=== PATIENT | female | born 1955 | race Caucasian/White ===

== ENCOUNTER 2018-05-16 12:32 | Emergency (ER) | payer OTHER ==
--- OUTSIDE RECORDS SUMMARY | 2018-05-16 12:34 | XMS REPORT | Summary of Care ---
:1955 Author Organization [facility] [place] Address Unavailable , Encounter HQ Sherrybriana_irisgifty(CYNTHIA) [id number] Date(s): 04/24/18 - 04/24/18 [facility] [place] Discharge Disposition: Home or Self Care Attending Physician: Bree Marina (Duplicate) Referring Physician: Bree Marina (Duplicate) Vital Signs No data available for this section Problem List No data available for this section Allergies, Adverse Reactions, Alerts No data available for this section Medications No data available for this section Results No data available for this section Immunizations No data available for this section Procedures No data available for this section Social History No data available for this section Assessment and Plan No data available for this section
--- OUTSIDE RECORDS SUMMARY | 2018-05-16 12:34 | XMS REPORT | Continuity of Care Document ---
:1955 Author Organization Interface Problems Problem Status Onset Classification Date Comments Source Date Reported R90.89 - OTH Active [facility] ABNORMAL 8 Bone & FINDINGS ON Joint DIAGN Medications Medication Details Route Status Patient Ordering Order Source Instructions Provider Date Allergies, Adverse Reactions, Alerts Substance Category Reaction Severity Reaction Status Date Comments Source type Reported Immunizations Immunization Date Given Site Status Last Updated Comments Source Results Order Results Value Reference Date Interpretation Comments Source Name Range Brain wo Brain wo MRI of the BRAIN Without IV Contrast 04/24 - [facility] contrast contrast /2017 - [facility] Read by: Lizbet Field MD Dictated Date/time: 04/24/18 18:26 TECHNIQUE: Multiplanar images were performed on a high field unit without IV contrast Electronically Signed by: Lizbet Field MD 04/24/18 18:33 FINAL REPORT HISTORY: Headaches Findings: There are multiple foci of abnormal signal intensity in the deep periventricular white matter as well of thin the subcortical lloyd-white junction in the posterior frontal lobes bilaterally. The findings most likely represent small vessel ischemic change as well as lacunar infarcts. No evidence of hemorrhage edema or mass effect. There is prominence of the sulci in the frontal and parietal lobes bilaterally compatible with cerebral cortical atrophy. No extra-axial fluid collections are identified. There is no evidence of mass, edema or hemorrhage. The craniocervical junction is normal without Chiari malformation. Corpus callosum is intact. No suprasellar masses are identified. Flow void is appreciated within the cavernous carotid and basilar arteries indicating patency. IMPRESSION: Multiple foci of deep periventricular and subcortical white matter abnormal signal highly compatible with small vessel ischemic change and lacunar infarcts. No evidence of hemorrhage edema or mass effect. Bilateral frontal and parietal cortical atrophy. Dictation Code: 100 Vital Signs Vital Sign Value Date Comments Source Encounters Location Location Encounter Encounter Reason Attending ADM DC Status Source Details Type Number For Provider Date Date Visit [facility] Outpt Diag [id number] Bree 04/24 04/25 [facility] [place] Procedures Procedure Code Date Perfomer Comments Source
--- OUTSIDE RECORDS SUMMARY | 2018-05-16 12:34 | XMS REPORT | Summary of Care ---
:1955 Author Name ANISHA HOLLY M.D. Address Unavailable Unavailable , Care Team Providers Name Role Phone ANISHA HOLLY M.D. Unavailable Unavailable Unavailable Unavailable Unavailable Functional Status Name Dates Details Functional status health issues are not documented Status: Name Dates Details Cognitive status health issues are not documented Status: Problems Name Dates Details Common migraine without aura (346.10, G43.009) Status: Active Migraine (346.90, G43.909) Status: Active Intractable migraine without aura and without status migrainosus (346.11, G43.019) Status: Active Intermittent post-traumatic headache (339.20, G44.309) Status: Active Abnormal brain MRI (793.0, R90.89) Status: Active Depression (311, F32.9) Status: Active Medications Name Dates Details Ventolin HFA AERS Refills: 0 Active Ibuprofen CAPS Refills: 0 Active Diclofenac Sodium 50 MG Oral Tablet Delayed Release TAKE ONE TABLET PO DAILY PRN HEADACHE Quantity: 30 Refills: 5 ELAYNE Sepulveda, ANISHA Start : 25-Dec-2017 Active Amitriptyline HCl - 25 MG Oral Tablet TAKE 2 TABLETS AT BEDTIME. Quantity: 60 Refills: 5 ELAYNE Sepulveda, ANISHA Start : 02-Apr-2018 Active Allergies and Adverse Reactions Name Dates Details Penicillins (Allergy) Status: Active Past Medical History Name Dates Details History of asthma (V12.69, Z87.09) Status: Resolved History of chronic obstructive lung disease (V12.69, Z87.09) Status: Resolved Procedures Procedure Dates Details MRI Brain wo contrast 64094 Date: 02-Apr-2018 History of Hysterectomy Completed History of Neck surgery Completed Immunization Name Dates Details Immunizations not documented Family History Name Dates Details Family history of lung disease (V19.8, Z83.6) Status: Active Name Dates Details Family history of myocardial infarction (V17.3, Z82.49) Status: Active Social History Name Dates Details Unknown if ever smoked Vital Signs Date Test Result Details [id number] BP Systolic 122 mm[Hg] Status: Comments: Location: LUE; Position: Sitting BP Diastolic 85 mm[Hg] Status: Comments: Location: E; Position: Sitting Height 58 in Status: Weight 157.375 lb Status: Body Mass Index Calculated 32.89 kg/m2 Status: Body Surface Area Calculated 1.64 m2 Status: Temperature 97.6 f Status: Comments: Method: Oral Heart Rate 73 /min Status: Results Date Description Value Details Results not documented Plan of Care Name Dates Details Planned Observations Planned Goals not documented Planned Encounters Appointment; ANISHA HOLLY M.D. On: 02-Jul-2018 11:30 Interventions Provided Medication ChangesAmitriptyline HCl - 25 MG Oral Tablet - StartLabs/Procedures/ ImagingMRI Brain wo contrast [id number]; To Be Done: 02 Apr 2018Plan- trial of Elavil 50mg qhs for migraine prophylaxis (titration schedule provided to the patient) - patient with history of abnormal MRI; will repeat imagingDiscussion/ SummaryMrs. Taylor is a 62 y/o woman with a PMH of HTN, DM and Hypothyroidism who presents to clinic for a follow-up appointment for management of her chronic headaches. Given the patient's history of headaches I think that her headaches are likely migrainous in origin which has been exacerbated by her recent head trauma. Due to the frequency and intensity of her headaches I believe that the patient would benefit from migraine prophylaxis. The patient's headaches are likely exacerbated by her ongoing stress and depression related to the recent passing of her son; restarting and increasing the dose of Elavil will likely help with this Instructions Name Dates Details Instructions not documented Encounters Appointment; ANISHA HOLLY M.D. On: 25-Dec-2017 10:30 Encounter Diagnosis: Problem not documented Appointment; ANISHA HOLLY M.D. On: 26-Mar-2018 11:30 Encounter Diagnosis: Problem not documented Appointment; ANISHA HOLLY M.D. On: 02-Apr-2018 11:30 Encounter Diagnosis: Problem not documented
[2018-05-16] MEDS ORDERED: HYDROCODONE/APAP 10/325 TAB ONE (13:25)
--- NOTE | 2018-05-16 13:47 | RAD REPORT ---
EXAM DESCRIPTION: CT - CTHCSPWOC - 05/16/2018 1:37 pm CLINICAL HISTORY: Fall, head and neck injury COMPARISON: None. TECHNIQUE: Axial 5 mm thick images of the head were obtained. Axial 2 mm thick images of the cervic al spine were obtained with sagittal and coronal reconstruction images generated and reviewed. All CT scans are performed using dose optimization technique as appropriate and may include automated exposure control or mA/KV adjustment according to patient size. FINDINGS: No intracranial hemorrhage, mass, edema or acute intracranial finding. No suspicion for ac [place] infarction. No extra-axial fluid collections. Mastoid air cells and paranasal sinuses are clear. No globe or orbit abnormality seen. No significant atrophy or chronic ischemic change. No skullbase f racture. Cervical body height and alignment are normal. C3-C7 fusion changes are present with hardware in plac e. [place] artifact from the metal hardware somewhat limits the examination. No alignment or subluxatio n abnormality seen. No fracture or acute bony abnormality. Central canal detail is inherently limited . Midline and right-sided central spinal stenosis at C3-4 from right-sided central canal hypertrophy. Canal is approximately 9 mm. Significant bony foraminal encroachment on the right at C5-6 from uncov ertebral joint hypertrophy. No paraspinal mass or hematoma. IMPRESSION: No hemorrhage, edema or acute CT Head finding. No fracture or acute cervical spine finding. There is C3-C7 fusion change present. Mild central spinal stenosis on the right at C3-4 and significant bony foraminal encroachment on the right at C5-6 are present and predate the injury. Negative CT cervical spine examination for acute or significant finding.
--- NOTE | 2018-05-16 13:51 | RAD REPORT ---
EXAM DESCRIPTION: CT - Thorax Wo Con - 05/16/2018 1:37 pm CLINICAL HISTORY: Fall, blunt force trauma to the chest COMPARISON: Chest exam March 03, 2018 TECHNIQUE: Axial 5 mm thick images of the chest were obtained without IV contrast. All CT scans are performed using dose optimization technique as appropriate and may include automated exposure control or mA/KV adjustment according to patient size. FINDINGS: No mass or infiltrate in the lung parenchyma. No pleural thickening or pleural effusion. N o pneumothorax is present. There is minimal scarring at the anterior based on the left. No abnormal mediastinal or hilar masses or lymphadenopathy seen. No gross aortic or pulmonary artery finding suspected. Assessment is limited in the absence of IV contrast. No chest wall mass or abnormal axillary lymphadenopathy. No sternum fracture. Clavicles are intact. N o displaced rib fractures seen or nondisplaced rib fracture suspected. IMPRESSION: No sternum or rib fracture seen. No mediastinal hematoma or mass. No pulmonary contusion, pneumothorax or acute pleural/parenchymal pr ocess.
--- NOTE | 2018-05-16 15:26 | EDPHYS ---
Physician Documentation [facility] Name: Jasmine Vazquez Age: 62 yrs Sex: Female : 1955 Arrival Date: 05/16/2018 Time: 12:37 Bed 23 Private MD: None, None ED Physician Stalin Keys HPI: 05/16 14:40 This 62 yrs old Female presents to ER via Ambulatory with complaints of Fall kdr Injury. 14:40 Details of fall: The patient fell from a height, Back of pick-up when tailgate fell kdr down. Onset: The symptoms/episode began/occurred acutely, suddenly, just prior to arrival. Associated injuries: The patient sustained injury to the chest, specifically the mid-sternal area, right breast and left breast, abrasion, contusion, pain with breathing, pain with movement, tenderness. Severity of symptoms: At their worst the symptoms were mild, in the emergency department the symptoms are unchanged. The patient has not experienced similar symptoms in the past. The patient has been recently seen by a physician: the patient's primary care provider. The patient fell out of the truck that was at rest hitting her head on a tree near the ground. There may have been a very brief LOC but the patient denies any LOC. Historical: - Allergies: 13:06 PENICILLINS; iw - Home Meds: 13:06 Ventolin Rotahaler/Rotacaps Inhl [Active]; Advair Diskus Inhl [Active]; diclofenac oral iw oral [Active]; amitriptyline Oral [Active]; - PMHx: 13:06 COPD; iw - PSHx: 13:06 neck; iw - Immunization history: Last tetanus immunization: unknown. - Social history:: Smoking status: Patient uses tobacco products. - Ebola Screening: : No symptoms or risks identified at this time. ROS: 14:40 Constitutional: Negative for fever, chills, and weight loss, Eyes: Negative for injury, kdr pain, redness, and discharge, Neck: Negative for injury, pain, and swelling, Cardiovascular: Negative for chest pain, palpitations, and edema, Respiratory: Negative for shortness of breath, cough, wheezing, and pleuritic chest pain, Abdomen/GI: Negative for abdominal pain, nausea, vomiting, diarrhea, and constipation, Back: Negative for injury and pain, : Negative for injury, bleeding, discharge, and swelling, MS/Extremity: Negative for injury and deformity, Neuro: Negative for headache, weakness, numbness, tingling, and seizure activity. Psych: Negative for depression, anxiety, suicide ideation, homicidal ideation, and hallucinations, Allergy/Immunology: Negative for hives, rash, and allergies, Endocrine: Negative for neck swelling, polydipsia, polyuria, polyphagia, and marked weight changes, Hematologic/Lymphatic: Negative for swollen nodes, abnormal bleeding, and unusual bruising. 14:40 Skin: Positive for abrasion(s), swelling. Exam: 14:40 Constitutional: This is a well developed, well nourished patient who is awake, alert, kdr and in no acute distress. Head/Face: Normocephalic, atraumatic. Eyes: Pupils equal round and reactive to light, extra-ocular motions intact. Lids and lashes normal. Conjunctiva and sclera are non-icteric and not injected. Cornea within normal limits. Periorbital areas with no swelling, redness, or edema. Neck: Trachea midline, no thyromegaly or masses palpated, and no cervical lymphadenopathy. Supple, full range of motion without nuchal rigidity, or vertebral point tenderness. No Meningismus. Cardiovascular: Regular rate and rhythm with a normal S1 and S2. No gallops, murmurs, or rubs. Normal PMI, no JVD. No pulse deficits. Respiratory: Lungs have equal breath sounds bilaterally, clear to auscultation and percussion. No rales, rhonchi or wheezes noted. No increased work of breathing, no retractions or nasal flaring. Abdomen/GI: Soft, non-tender, with normal bowel sounds. No distension or tympany. No guarding or rebound. No evidence of tenderness throughout. Back: No spinal tenderness. No costovertebral tenderness. Full range of motion. Skin: Warm, dry with normal turgor. Normal color with no rashes, no lesions, and no evidence of cellulitis. 14:40 Chest/axilla: Inspection: abrasion, that is mild, of the left breast Palpation: tenderness, that is mild, that partially reproduces the patient's complaints, that totally reproduces the patient's complaints. Vital Signs: 13:06 BP 124 / 88; Pulse 81; Resp 16; Temp 99.2; Pulse Ox 97% on R/A; Weight 68.04 kg; Height iw 5 ft. (152.40 cm); Pain 10/10; 14:00 BP 131 / 86; Pulse 75; Resp 17; Pulse Ox 98% on R/A; kr2 15:00 BP 114 / 71; Pulse 72; Resp 17; Pulse Ox 97% on R/A; kr2 13:06 Body Mass Index 29.29 (68.04 kg, 152.40 cm) iw Mauricio Coma Score: 13:06 Eye Response: spontaneous(4). Verbal Response: oriented(5). Motor Response: obeys iw commands(6). Total: 15. 13:07 Eye Response: spontaneous(4). Verbal Response: oriented(5). Motor Response: obeys kr2 commands(6). Total: 15. Trauma Score (Adult): 13:06 Eye Response: spontaneous(1); Verbal Response: oriented(1); Motor Response: obeys iw commands(2); Systolic BP: > 89 mm Hg(4); Respiratory Rate: 10 to 29 per min(4); Mauricio Score: 15; Trauma Score: 12 13:07 Eye Response: spontaneous(1); Verbal Response: oriented(1); Motor Response: obeys kr2 commands(2); Systolic BP: > 89 mm Hg(4); Respiratory Rate: 10 to 29 per min(4); [place] Score: 15; Trauma Score: 12 MDM: 14:40 Data reviewed: vital signs, nurses notes, radiologic studies. Counseling: I had a kdr detailed discussion with the patient and/or guardian regarding: the historical points, exam findings, and any diagnostic results supporting the discharge/admit diagnosis. 15:25 Patient medically screened. kdr 05/16 13:18 Order name: CT Head C Spine; Complete Time: 14:38 kdr 05/16 13:18 Order name: CT Chest Wo Con; Complete Time: 14:38 kdr Administered Medications: 13:22 Drug: [place] 10 mg-325 mg 1 tabs Route: PO; kr2 15:01 Follow up: Response: No adverse reaction; Pain is decreased kr2 Disposition: 05/16/18 15:25 Discharged to Home. Impression: Chest pain, unspecified - Chest wall pain. - Condition is Stable. - Discharge Instructions: Chest Wall Pain, [id number]. - Prescriptions for Tylenol- Codeine #3 300-30 mg Oral Tablet - take 2 tablets by ORAL route every 6 hours As needed; 15 tablet. - Medication Reconciliation Form, Thank You Letter, Prescription Opioid Use, Family Work Release form. - Follow up: Private Physician; When: 2 - 3 days; Reason: If symptoms return, Further diagnostic work-up, Recheck today's complaints, Continuance of care, Re-evaluation by your physician. - Problem is new. - Symptoms have improved. Signatures: Dispatcher [employer] EDMS Stalin Keys MD MD kdr Khloe Good RN RN iw Soniya Corado RN RN kr2 Corrections: (The following items were deleted from the chart) 15:40 15:25 05/16/2018 15:25 Discharged to Home. Impression: Chest pain, unspecified - Chest kr2 wall pain. Condition is Stable. Forms are Medication Reconciliation Form, Thank You Letter, Antibiotic Education, Prescription Opioid Use. Follow up: Private Physician; When: 2 - 3 days; Reason: If symptoms return, Further diagnostic work-up, Recheck today's complaints, Continuance of care, Re-evaluation by your physician. Problem is new. Symptoms have improved. kdr
--- NOTE | 2018-05-16 15:26 | ER ---
Nurse's Notes [facility] Name: Jasmine Vazquez Age: 62 yrs Sex: Female : 1955 Arrival Date: 05/16/2018 Time: 12:37 Bed 23 Private MD: None, None Diagnosis: Chest pain, unspecified-Chest wall pain Presentation: 05/16 13:02 Presenting complaint: Patient states: was trying to get out of bed of truck, felt iw tailgate falling, pt fell to ground, hit chest along brick lining the driveway, pt now has pain across chest and pain with respiration, 10/10. Care prior to arrival: None. Mechanism of Injury: Fall approximately 3 feet. Trauma event details: Injury occurred in the [facility]. 13:02 Acuity: RAKAN 3 iw 13:02 Method Of Arrival: Ambulatory iw 13:07 Transition of care: patient was not received from another setting of care. Onset of iw symptoms was May 16, 2018. Risk Assessment: Do you want to hurt yourself or someone else? Patient reports no desire to harm self or others. Initial Sepsis Screen: Does the patient meet any 2 criteria? No. Patient's initial sepsis screen is negative. Does the patient have a suspected source of infection? No. Patient's initial sepsis screen is negative. Trauma Activation: Not Applicable Physician: ED Physician; Name: ; Notified At: ; Arrived At: Physician: General Surgeon; Name: ; Notified At: ; Arrived At: Physician: Radiology; Name: ; Notified At: ; Arrived At: Physician: Respiratory; Name: ; Notified At: ; Arrived At: Physician: Lab; Name: ; Notified At: ; Arrived At: Historical: - Allergies: 13:06 PENICILLINS; iw - Home Meds: 13:06 Ventolin Rotahaler/Rotacaps Inhl [Active]; Advair Diskus Inhl [Active]; diclofenac oral iw oral [Active]; amitriptyline Oral [Active]; - PMHx: 13:06 COPD; iw - PSHx: 13:06 neck; iw - Immunization history: Last tetanus immunization: unknown. - Social history:: Smoking status: Patient uses tobacco products. - Ebola Screening: : No symptoms or risks identified at this time. Screenin:09 Abuse screen: Denies threats or abuse. Denies injuries from another. Nutritional kr2 screening: No deficits noted. Tuberculosis screening: No symptoms or risk factors identified. Fall Risk None identified. Primary Survey: 13:09 A: Airway: patent. Breathing/Chest: Respiratory pattern: regular, Respiratory effort: kr2 spontaneous, unlabored, Breath sounds: clear, bilaterally. Chest inspection: symmetrical rise and fall of the chest. Circulation: Heart tones present. Skin color: pink, Skin temperature: warm, dry. Disability Alert. 13:30 Reassessment Breathing/Chest Respiratory pattern Regular Respiratory effort Spontaneous kr2 Unlabored Breath sounds Clear Chest inspection Symmetrical. Assessment: 13:03 General: Appears in no apparent distress. uncomfortable, well groomed, well developed, kr2 well nourished, Behavior is calm, cooperative, appropriate for age. Pain: Complains of pain in anterior aspect of right upper chest, anterior aspect of left upper chest and mid-sternal area Pain does not radiate. Pain currently is 10 out of 10 on a pain scale. Quality of pain is described as sharp, tender, Is continuous, Alleviated by rest, Aggravated by deep breathing. Neuro: Level of Consciousness is awake, alert, obeys commands, Oriented to person, place, time, situation, Appropriate for age Wrapper Stemmer Operator are equal bilaterally. Cardiovascular: Capillary refill < 3 seconds in bilateral fingers Patient's skin is warm and dry. Respiratory: Airway is patent Respiratory effort is even, unlabored, Respiratory pattern is regular, symmetrical. GI: Abdomen is flat, non-distended, Patient currently denies nausea, vomiting. EENT: Oral mucosa is moist. Derm: Skin is intact, is healthy with good turgor, Skin is pink, warm \T\ dry. Musculoskeletal: Circulation, motion, and sensation intact. 14:00 Reassessment: Patient appears in no apparent distress at this time. Patient and/or kr2 family updated on plan of care and expected duration. Pain level reassessed. Patient is alert, oriented x 3, equal unlabored respirations, skin warm/dry/pink. Patient states symptoms have improved. 14:59 Reassessment: Patient appears in no apparent distress at this time. Patient and/or kr2 family updated on plan of care and expected duration. Pain level reassessed. Patient is alert, oriented x 3, equal unlabored respirations, skin warm/dry/pink. Patient states feeling better. Vital Signs: 13:06 BP 124 / 88; Pulse 81; Resp 16; Temp 99.2; Pulse Ox 97% on R/A; Weight 68.04 kg; Height iw 5 ft. (152.40 cm); Pain 10/10; 14:00 BP 131 / 86; Pulse 75; Resp 17; Pulse Ox 98% on R/A; kr2 15:00 BP 114 / 71; Pulse 72; Resp 17; Pulse Ox 97% on R/A; kr2 13:06 Body Mass Index 29.29 (68.04 kg, 152.40 cm) iw Mauricio Coma Score: 13:06 Eye Response: spontaneous(4). Verbal Response: oriented(5). Motor Response: obeys iw commands(6). Total: 15. 13:07 Eye Response: spontaneous(4). Verbal Response: oriented(5). Motor Response: obeys kr2 commands(6). Total: 15. Trauma Score (Adult): 13:06 Eye Response: spontaneous(1); Verbal Response: oriented(1); Motor Response: obeys iw commands(2); Systolic BP: > 89 mm Hg(4); Respiratory Rate: 10 to 29 per min(4); Mauricio Score: 15; Trauma Score: 12 13:07 Eye Response: spontaneous(1); Verbal Response: oriented(1); Motor Response: obeys kr2 commands(2); Systolic BP: > 89 mm Hg(4); Respiratory Rate: 10 to 29 per min(4); Mauricio Score: 15; Trauma Score: 12 ED Course: 12:37 Patient arrived in ED. mr 12:37 None, None is Private Physician. mr 12:40 Stalin Keys MD is Attending Physician. kdr 13:02 Soniya Corado, MAGI is Primary Nurse. kr2 13:04 Triage completed. iw 13:07 Arm band placed on. iw 13:08 Patient has correct armband on for positive identification. Bed in low position. Call kr2 light in reach. Side rails up X 1. Adult w/ patient. Pulse ox on. NIBP on. Door closed. Warm blanket given. Head of bed elevated. 13:10 Patient maintains SpO2 saturation greater than 95% on room air. kr2 13:11 Thermoregulation: warm blanket given to patient. kr2 13:27 CT completed. Patient tolerated procedure well. Patient moved to CT via wheelchair. vr Patient moved back from CT. 13:34 CT Head C Spine In Process Unspecified. EDMS 13:37 CT Chest Wo Con In Process Unspecified. EDMS 15:35 No provider procedures requiring assistance completed. Patient did not have IV access kr2 during this emergency room visit. Administered Medications: 13:22 Drug: [place] 10 mg-325 mg 1 tabs Route: PO; kr2 15:01 Follow up: Response: No adverse reaction; Pain is decreased kr2 Intake: 15:35 PO: 30ml (Water); Total: 30ml. kr2 Output: 15:35 Urine: 100ml (Voided); Total: 100ml. kr2 Outcome: 15:25 Discharge ordered by . kdr 15:35 Discharged to home ambulatory, with family. kr2 15:35 Condition: good 15:35 Discharge instructions given to patient, family, Instructed on discharge instructions, follow up and referral plans. medication usage, Demonstrated understanding of instructions, follow-up care, medications, Prescriptions given X 2. 15:40 Patient left the ED. kr2 Signatures: Dispatcher [employer] EDMS Stalin Keys MD MD kdr Rivera, Maria mr Khloe Good, Rosa M Manuel RN, Karey, RN RN kr2 Corrections: (The following items were deleted from the chart) 13:08 13:03 Pain: Complains of pain in anterior aspect of right upper chest, anterior aspect kr2 of left upper chest and mid-sternal area Pain does not radiate. Pain currently is 5 out of 10 on a pain scale. Quality of pain is described as sharp, tender, Is continuous, Alleviated by rest, Aggravated by deep breathing kr2
== END 2018-05-16 15:40 | disposition home or self-care (01) ==
LOC: ER 12:32
DX: R07.89 Other chest pain (principal); J44.9 Chronic obstructive pulmonary disease, unspecified; W17.89XA Other fall from one level to another, initial encounter; Y93.89 Activity, other specified; Y92.89 Other specified places as the place of occurrence of the external cause; Z72.0 Tobacco use; Z88.0 Allergy status to penicillin
CPT/HCPCS: 70450; 71250; 72125; 99285

== ENCOUNTER 2018-09-17 08:42 | Emergency (ER) | payer OTHER ==
--- OUTSIDE RECORDS SUMMARY | 2018-09-17 08:46 | XMS REPORT | Continuity of Care Document ---
[...] Type Number For Provider Date Date Visit [facility] Outpt Diag [id number] Bree 04/24 04/25 [facility] [place] Procedures Procedure Code Date Perfomer Comments Source
--- OUTSIDE RECORDS SUMMARY | 2018-09-17 08:46 | XMS REPORT | Summary of Care ---
:1955 Author Name Cynthia Patrick Address [facility] Unavailable , Care Team Providers Name Role Phone ANISHA HOLLY M.D. Unavailable Unavailable Darnell Cynthia Unavailable Unavailable Unavailable Unavailable Unavailable Functional Status Name Dates Details Functional status health issues are not documented Status: Name Dates Details Cognitive status health issues are not documented Status: Problems Name Dates Details Common migraine without aura (346.10, G43.009) Status: Active Migraine (346.90, G43.909) Status: Active Depression (311, F32.9) Status: Active Intractable migraine without aura and without status migrainosus (346.11, G43.019) Status: Active Intermittent post-traumatic headache (339.20, G44.309) Status: Active Abnormal brain MRI (793.0, R90.89) Status: Active Medications Name Dates Details Ventolin HFA AERS Refills: 0 Active Ibuprofen CAPS Refills: 0 Active Diclofenac Sodium 50 MG Oral Tablet Delayed Release TAKE ONE TABLET PO DAILY PRN HEADACHE Quantity: 30 Refills: 5 ANISHA HOLLY M.D. Start : 25-Dec-2017 Active Amitriptyline HCl - 25 MG Oral Tablet TAKE 2 TABLETS AT BEDTIME. Quantity: 60 Refills: 5 ANISHA HOLLY M.D. Start : 02-Apr-2018 Active Allergies and Adverse Reactions Name Dates Details Penicillins (Allergy) Status: Active Past Medical History Name Dates Details History of asthma (V12.69, Z87.09) Status: Resolved History of chronic obstructive lung disease (V12.69, Z87.09) Status: Resolved Procedures Procedure Dates Details History of Hysterectomy Completed History of Neck surgery Completed Immunization Name Dates Details Immunizations not documented Family History Name Dates Details Family history of lung disease (V19.8, Z83.6) Status: Active Name Dates Details Family history of myocardial infarction (V17.3, Z82.49) Status: Active Social History Name Dates Details Unknown if ever smoked Vital Signs Date Test Result Details No Known Vitals to report Results Date Description Value Details Results not documented Plan of Care Name Dates Details Planned Observations Planned Goals not documented Planned Encounters Appointment; ANISHA HOLLY M.D. On: 30-Dec-2018 11:30 Instructions Name Dates Details Instructions not documented Encounters Appointment; ANISHA HOLLY M.D. On: 25-Dec-2017 10:30 Encounter Diagnosis: Problem not documented Appointment; ANISHA HOLLY M.D. On: 26-Mar-2018 11:30 Encounter Diagnosis: Problem not documented Appointment; ANISHA HOLLY M.D. On: 02-Apr-2018 11:30 Encounter Diagnosis: Problem not documented Appointment; ANISHA HOLLY M.D. On: 02-Jul-2018 11:30 Encounter Diagnosis: Problem not documented
[2018-09-17] MEDS ORDERED: IPRATROPIUM BROM 0.5MG/2.5ML ONE (09:19)
[2018-09-17] MEDS ORDERED: ALBUTEROL 2.5 MG/3 ML NEB SOL ONE (09:19)
--- NOTE | 2018-09-17 10:28 | RAD REPORT ---
EXAM DESCRIPTION: Lynn Agosto (2 Views)09/17/2018 9:43 am CLINICAL HISTORY: Cough COMPARISON: February 2018 FINDINGS: The lungs appear clear of acute infiltrate. The heart is normal size IMPRESSION: No acute abnormalities displayed
--- NOTE | 2018-09-17 10:48 | ER ---
Nurse's Notes [facility] Name: Jasmine Vazquez Age: 62 yrs Sex: Female : 1955 Arrival Date: 09/17/2018 Time: 08:46 Bed 11 Private MD: None, None Diagnosis: Bronchitis, not specified as acute or chronic Presentation: 09/17 08:53 Presenting complaint: Patient states: i started feeling bad the night before last my tw2 throat was scratchy and yesterday it was real bad, i also had a 99 fever yesterday, everything hurts, congestion. Transition of care: patient was not received from another setting of care. Onset of symptoms was September 17, 2018. Risk Assessment: Do you want to hurt yourself or someone else? Patient reports no desire to harm self or others. Initial Sepsis Screen: Does the patient meet any 2 criteria? No. Patient's initial sepsis screen is negative. Does the patient have a suspected source of infection? No. Patient's initial sepsis screen is negative. Care prior to arrival: None. 08:53 Method Of Arrival: Ambulatory tw2 08:53 Acuity: RAKAN 4 tw2 Historical: - Allergies: 08:55 PENICILLINS; tw2 - Home Meds: 08:55 Advair Diskus Inhl [Active]; Amitriptyline Oral [Active]; diclofenac Oral [Active]; tw2 Ventolin Rotahaler/Rotacaps Inhl [Active]; - PMHx: 08:55 COPD; tw2 - PSHx: 08:55 neck; tw2 - Immunization history:: Adult Immunizations up to date. - Social history:: Smoking status: . - Ebola Screening: : Patient denies travel to an Ebola-affected area in the 21 days before illness onset. Screenin:02 Abuse screen: Denies threats or abuse. Nutritional screening: No deficits noted. tw2 Tuberculosis screening: No symptoms or risk factors identified. Fall Risk None identified. Assessment: 09:01 General: Appears in no apparent distress. Behavior is calm, cooperative, appropriate tw2 for age. Pain: Complains of pain in throat. Neuro: Level of Consciousness is awake, alert, obeys commands, Oriented to person, place, time, situation. Cardiovascular: Patient's skin is warm and dry. Respiratory: Reports cough that is non-productive, Airway is patent Respiratory effort is even, unlabored, Respiratory pattern is regular, symmetrical. GI: No signs and/or symptoms were reported involving the gastrointestinal system. : No signs and/or symptoms were reported regarding the genitourinary system. EENT: Reports nasal congestion nasal discharge pain in right ear and left ear when swallowing. Derm: No signs and/or symptoms reported regarding the dermatologic system. Musculoskeletal: Range of motion: intact in all extremities. 10:03 Reassessment: Patient appears in no apparent distress at this time. No changes from tw2 previously documented assessment. Patient and/or family updated on plan of care and expected duration. Pain level reassessed. Patient is alert, oriented x 3, equal unlabored respirations, skin warm/dry/pink. 10:53 Reassessment: Patient appears in no apparent distress at this time. No changes from tw2 previously documented assessment. Patient and/or family updated on plan of care and expected duration. Pain level reassessed. Patient is alert, oriented x 3, equal unlabored respirations, skin warm/dry/pink. Vital Signs: 08:54 BP 135 / 84; Pulse 96; Resp 17; Temp 98.2(O); Pulse Ox 100% on R/A; Pain 7/10; tw2 10:03 BP 122 / 74; Pulse 86; Resp 17; Pulse Ox 98% on R/A; tw2 ED Course: 08:46 Patient arrived in ED. sb2 08:46 None, None is Private Physician. sb2 08:54 Triage completed. tw2 08:54 [facility] kb 08:54 Miguel Pierce MD is Attending Physician. kb 08:54 Arm band placed on. tw2 08:57 Strep Sent. tw2 08:57 Flu Sent. tw2 09:01 Palak Caruso, MAGI is Primary Nurse. tw2 09:01 Bed in low position. Call light in reach. tw2 09:34 Patient moved to radiology via wheelchair. la2 09:39 X-ray completed. Patient tolerated procedure well. Patient moved back from radiology. jb2 10:53 No provider procedures requiring assistance completed. Patient did not have IV access tw2 during this emergency room visit. Administered Medications: 09:13 Drug: DuoNeb (3:1) (2.5 mg - 0.5 mg) 3 ml Route: Nebulizer; tw2 10:03 Follow up: Response: No adverse reaction tw2 Outcome: 10:47 Discharge ordered by MD. poole 10:53 Discharged to home ambulatory. 2 10:53 Condition: stable 10:53 Discharge instructions given to patient, Instructed on discharge instructions, follow up and referral plans. medication usage, Demonstrated understanding of instructions, follow-up care, medications, Prescriptions given X 1. 10:53 Patient left the ED. tw2 Signatures: Bree Mackenzie FNP-C FNP-Ckb Buechter, Jesse jb2 Palak Caruso RN RN tw2 Nanda Colvin2 Renae Dial sb2
--- NOTE | 2018-09-17 10:48 | EDPHYS ---
Physician Documentation [facility] Name: Jasmine Vazquez Age: 62 yrs Sex: Female : 1955 Arrival Date: 09/17/2018 Time: 08:46 Bed 11 Private MD: None, None ED Physician Miguel Pierce HPI: 09/17 09:14 This 62 yrs old Female presents to ER via Ambulatory with complaints of Flu kb Symptoms. 09:14 The patient or guardian reports cough, that is intermittent, described as moderate, kb with no sputum, flu symptoms, myalgias. Onset: The symptoms/episode began/occurred 3 day(s) ago. Severity of symptoms: At their worst the symptoms were moderate, in the emergency department the symptoms are unchanged. Modifying factors: The symptoms are alleviated by nothing, the symptoms are aggravated by nothing. Associated signs and symptoms: Pertinent positives: earache, sore throat, Pertinent negatives: chest pain, diarrhea, fever, nausea, rhinorrhea, vomiting. The patient has not experienced similar symptoms in the past. The patient has not recently seen a physician. Pt reports cough, congestion, sore throat, ear pain and body aches. Diagnosed with strep and bronchitis 3 weeks ago, completed antibiotics and steroids. . Historical: - Allergies: 08:55 PENICILLINS; tw2 - Home Meds: 08:55 Advair Diskus Inhl [Active]; Amitriptyline Oral [Active]; diclofenac Oral [Active]; tw2 Ventolin Rotahaler/Rotacaps Inhl [Active]; - PMHx: 08:55 COPD; tw2 - PSHx: 08:55 neck; tw2 - Immunization history:: Adult Immunizations up to date. - Social history:: Smoking status: . - Ebola Screening: : Patient denies travel to an Ebola-affected area in the 21 days before illness onset. ROS: 09:11 Neck: Negative for injury, pain, and swelling, Cardiovascular: Negative for chest pain, kb palpitations, and edema, Abdomen/GI: Negative for abdominal pain, nausea, vomiting, diarrhea, and constipation, Back: Negative for injury and pain, : Negative for injury, bleeding, discharge, and swelling, MS/Extremity: Negative for injury and deformity, Skin: Negative for injury, rash, and discoloration, Neuro: Negative for headache, weakness, numbness, tingling, and seizure. 09:11 Constitutional: Positive for body aches, malaise, Negative for chills, fever, poor PO intake, weight loss. 09:11 ENT: Positive for sore throat. 09:11 Respiratory: Positive for cough, Negative for dyspnea on exertion, hemoptysis, orthopnea, pleurisy, shortness of breath, sputum production, wheezing. Exam: 09:11 Constitutional: This is a well developed, well nourished patient who is awake, alert, kb and in no acute distress. Head/Face: Normocephalic, atraumatic. ENT: Nares patent. No nasal discharge, no septal abnormalities noted. Tympanic membranes are normal and external auditory canals are clear. Oropharynx with no redness, swelling, or masses, exudates, or evidence of obstruction, uvula midline. Mucous membranes moist. Neck: Trachea midline, no thyromegaly or masses palpated, and no cervical lymphadenopathy. Supple, full range of motion without nuchal rigidity, or vertebral point tenderness. No Meningismus. Chest/axilla: Normal chest wall appearance and motion. Nontender with no deformity. No lesions are appreciated. Cardiovascular: Regular rate and rhythm with a normal S1 and S2. No gallops, murmurs, or rubs. Normal PMI, no JVD. No pulse deficits. Abdomen/GI: Soft, non-tender, with normal bowel sounds. No distension or tympany. No guarding or rebound. No evidence of tenderness throughout. Skin: Warm, dry with normal turgor. Normal color with no rashes, no lesions, and no evidence of cellulitis. MS/ Extremity: Pulses equal, no cyanosis. Neurovascular intact. Full, normal range of motion. Neuro: Awake and alert, GCS 15, oriented to person, place, time, and situation. Cranial nerves II-XII grossly intact. Motor strength 5/5 in all extremities. Sensory grossly intact. Cerebellar exam normal. Normal gait. 09:11 Respiratory: the patient does not display signs of respiratory distress, Respirations: normal, Breath sounds: wheezing: expiratory that is moderate, is heard diffusely. Vital Signs: 08:54 BP 135 / 84; Pulse 96; Resp 17; Temp 98.2(O); Pulse Ox 100% on R/A; Pain 7/10; tw2 10:03 BP 122 / 74; Pulse 86; Resp 17; Pulse Ox 98% on R/A; tw2 MDM: 08:54 Patient medically screened. kb 09:11 Data reviewed: vital signs, nurses notes. Data interpreted: Pulse oximetry: on room air kb is 100 %. Interpretation: normal. 10:42 Counseling: I had a detailed discussion with the patient and/or guardian regarding: the kb historical points, exam findings, and any diagnostic results supporting the discharge/admit diagnosis, lab results, radiology results, the need for outpatient follow up, a family practitioner, to return to the emergency department if symptoms worsen or persist or if there are any questions or concerns that arise at home. 09/17 08:54 Order name: Flu; Complete Time: 09:44 kb 09/17 08:54 Order name: Strep; Complete Time: 09:35 kb 09/17 09:04 Order name: Chest Pa And Lat (2 Views) XRAY kb 09/17 10:29 Order name: RAD; Complete Time: 10:32 EDMS Administered Medications: 09:13 Drug: DuoNeb (3:1) (2.5 mg - 0.5 mg) 3 ml Route: Nebulizer; tw2 10:03 Follow up: Response: No adverse reaction tw2 Disposition: 11:37 Co-signature as Attending Physician, Miguel Pierce MD. rn Disposition: 09/17/18 10:47 Discharged to Home. Impression: Bronchitis, not specified as acute or chronic. - Condition is Stable. - Discharge Instructions: Acute Bronchitis, [id number], Viral Respiratory Infection, [id number]. - Prescriptions for Prednisone 20 mg Oral Tablet - take 1 tablet by ORAL route once daily for 5 days; 5 tablet. - Medication Reconciliation Form, Thank You Letter, Antibiotic Education, Prescription Opioid Use form. - Follow up: Emergency Department; When: As needed; Reason: Worsening of condition. Follow up: Private Physician; When: 2 - 3 days; Reason: Recheck today's complaints, Continuance of care, Re-evaluation by your physician. Signatures: Dispatcher [employer] EDMS Bree Mackenzie, COMPLAINT INVESTIGATIONS OFFICER-C COMPLAINT INVESTIGATIONS OFFICER-Miguel Tom MD MD rn Wise, Tara, RN RN tw2 Corrections: (The following items were deleted from the chart) 10:53 10:47 09/17/2018 10:47 Discharged to Home. Impression: Bronchitis, not specified as tw2 acute or chronic. Condition is Stable. Forms are Medication Reconciliation Form, Thank You Letter, Antibiotic Education, Prescription Opioid Use. Follow up: Emergency Department; When: As needed; Reason: Worsening of condition. Follow up: Private Physician; When: 2 - 3 days; Reason: Recheck today's complaints, Continuance of care, Re-evaluation by your physician. kb
== END 2018-09-17 10:53 | disposition home or self-care (01) ==
LOC: ER 08:42
DX: J40 Bronchitis, not specified as acute or chronic (principal); J44.9 Chronic obstructive pulmonary disease, unspecified; Z79.51 Long term (current) use of inhaled steroids
CPT/HCPCS: 71046; 87070; 87081; 87804; 94640; 99284

== ENCOUNTER 2018-11-04 20:48 | Emergency (ER) | payer OTHER ==
--- OUTSIDE RECORDS SUMMARY | 2018-11-04 20:50 | XMS REPORT | Continuity of Care Document ---
[...] Type Number For Provider Date Date Visit [facility] Outpt Diag [id number] Bree 04/24 04/25 [facility] [place] Procedures Procedure Code Date Perfomer Comments Source
[2018-11-04] MEDS ORDERED: DIPHENHYDRAMINE 50 MG/ML VIAL ONE (21:23)
[2018-11-04] MEDS ORDERED: FAMOTIDINE 20 MG/2 ML VIAL IV ONE (21:23)
[2018-11-04] MEDS ORDERED: METHYLPREDNISOLONE 125 MG INJ ONE (21:23)
--- NOTE | 2018-11-04 22:47 | EDPHYS ---
Physician Documentation [facility] Name: Jasmine Vazquez Age: 63 yrs Sex: Female : 1955 Arrival Date: 11/04/2018 Time: 20:52 Bed 14 Private MD: ED Physician Travon Quintero HPI: 11/05 05:16 This 63 yrs old Female presents to ER via Ambulatory with complaints of Lips tw4 Swelling. 05:16 The patient presents with swelling. The problem is located in the lower lip. Onset: The tw4 symptoms/episode began/occurred today. Duration: The symptoms are continuous, and are unchanged since they started. Modifying factors: The symptoms are alleviated by nothing, the symptoms are aggravated by nothing. Associated signs and symptoms: The patient has no apparent associated signs or symptoms. Severity of symptoms: At their worst the symptoms were moderate, in the emergency department the symptoms are unchanged. The patient has not experienced similar symptoms in the past. Historical: - Allergies: 11/04 21:10 PENICILLINS; lp1 - Home Meds: 21:10 Amitriptyline Oral [Active]; Advair Diskus Inhl [Active]; diclofenac Oral [Active]; lp1 Ventolin Rotahaler/Rotacaps Inhl [Active]; - PMHx: 21:10 COPD; lp1 - PSHx: 21:10 Hysterectomy; Neck surgery; lp1 - Immunization history:: Adult Immunizations up to date. - Social history:: Smoking status: Patient/guardian denies using tobacco. - Ebola Screening: : No symptoms or risks identified at this time. ROS: 11/05 05:16 Constitutional: Negative for fever, chills, and weight loss, Eyes: Negative for injury, tw4 pain, redness, and discharge, Cardiovascular: Negative for chest pain, palpitations, and edema, Respiratory: Negative for shortness of breath, cough, wheezing, and pleuritic chest pain, Abdomen/GI: Negative for abdominal pain, nausea, vomiting, diarrhea, and constipation. Back: Negative for injury and pain, Skin: Negative for injury, rash, and discoloration, Neuro: Negative for headache, weakness, numbness, tingling, and seizure. ENT: Positive for swelling. Exam: 05:16 Constitutional: This is a well developed, well nourished patient who is awake, alert, tw4 and in no acute distress. Head/Face: Normocephalic, atraumatic. 05:16 Cardiovascular: Regular rate and rhythm with a normal S1 and S2. No gallops, murmurs, or rubs. Normal PMI, no JVD. No pulse deficits. Respiratory: Lungs have equal breath sounds bilaterally, clear to auscultation and percussion. No rales, rhonchi or wheezes noted. No increased work of breathing, no retractions or nasal flaring. Abdomen/GI: Soft, non-tender, with normal bowel sounds. No distension or tympany. No guarding or rebound. No evidence of tenderness throughout. MS/ Extremity: Pulses equal, no cyanosis. Neurovascular intact. Full, normal range of motion. Neuro: Awake and alert, GCS 15, oriented to person, place, time, and situation. Cranial nerves II-XII grossly intact. Motor strength 5/5 in all extremities. Sensory grossly intact. Cerebellar exam normal. Normal gait. 05:16 ENT: Mouth: Lips: swelling. Vital Signs: 11/04 21:10 BP 141 / 84; Pulse 83; Resp 18; Temp 98.4(O); Pulse Ox 96% on R/A; Weight 68.04 kg; lp1 Height 5 ft. 0 in. (152.40 cm); Pain 8/10; 22:09 BP 141 / 92; Pulse 82; Resp 17 S; Pulse Ox 97% on R/A; jd3 21:10 Body Mass Index 29.29 (68.04 kg, 152.40 cm) lp1 MDM: 21:03 Patient medically screened. tw4 11/05 05:16 Data reviewed: vital signs, nurses notes. Medication response: solumedrol. Response to tw4 treatment: the patient's symptoms have mildly improved after treatment, and as a result, I will discharge patient. Special discussion: I discussed with the patient/guardian in detail that at this point there is no indication for admission to the hospital. It is understood, however, that if the symptoms persist or worsen the patient needs to return immediately for re-evaluation. 11/04 21:11 Order name: IV Saline Lock; Complete Time: 21:11 jd3 Administered Medications: 11/04 21:20 Drug: SOLU-Medrol 125 mg Route: IVP; Site: right antecubital; jd3 22:00 Follow up: Response: No adverse reaction jd3 21:20 Drug: Benadryl 50 mg Route: IVP; Site: right antecubital; jd3 22:00 Follow up: Response: No adverse reaction jd3 21:20 Drug: Pepcid 20 mg Route: IVP; Site: right antecubital; jd3 22:00 Follow up: Response: No adverse reaction jd3 Disposition: 11/04/18 22:46 Discharged to Home. Impression: Allergic reaction, angioedema lip. - Condition is Stable. - Discharge Instructions: Angioedema, [id number]. - Prescriptions for Pepcid 20 mg Oral Tablet - take 1 tablet by ORAL route every 12 hours for 10 days; 20 tablet. Medrol (Navi) 4 mg Oral Tablets, Dose Pack - take 1 tablet by ORAL route as directed - follow package instructions; 1 packet. - Medication Reconciliation Form, Thank You Letter, Antibiotic Education, Prescription Opioid Use form. - Follow up: Private Physician; When: Upon discharge from the Emergency Department; Reason: If symptoms return, Recheck today's complaints, Continuance of care. - Problem is new. - Symptoms have improved. Signatures: Yennifer Joaquin RN RN lp1 Bo Ferrera RN RN jd3 Travon Quintero MD MD tw4 Corrections: (The following items were deleted from the chart) 23:02 22:46 11/04/2018 22:46 Discharged to Home. Impression: Allergic reaction; angioedema jd3 lip. Condition is Stable. Forms are Medication Reconciliation Form, Thank You Letter, Antibiotic Education, Prescription Opioid Use. Follow up: Private Physician; When: Upon discharge from the Emergency Department; Reason: If symptoms return, Recheck today's complaints, Continuance of care. Problem is new. Symptoms have improved. tw4
--- NOTE | 2018-11-04 22:47 | ER ---
Nurse's Notes [facility] Name: Jasmine Vazquez Age: 63 yrs Sex: Female : 1955 Arrival Date: 11/04/2018 Time: 20:52 Bed 14 Private MD: Diagnosis: Allergic reaction;angioedema lip Presentation: 11/04 21:08 Presenting complaint: Patient states: Lower lip swelling that began at 1800 tonight; lp1 Denies any allergies, anything new used, no shortness of breath; States taking 2 tablets of Loratidine about 1 hour ago. Transition of care: patient was not received from another setting of care. Onset of symptoms was November 04, 2018 at 18:00. Risk Assessment: Do you want to hurt yourself or someone else? Patient reports no desire to harm self or others. Initial Sepsis Screen: Does the patient meet any 2 criteria? No. Patient's initial sepsis screen is negative. Does the patient have a suspected source of infection? No. Patient's initial sepsis screen is negative. Care prior to arrival: None. 21:08 Method Of Arrival: Ambulatory lp1 21:08 Acuity: RAKAN 4 lp1 Historical: - Allergies: 21:10 PENICILLINS; lp1 - Home Meds: 21:10 Amitriptyline Oral [Active]; Advair Diskus Inhl [Active]; diclofenac Oral [Active]; lp1 Ventolin Rotahaler/Rotacaps Inhl [Active]; - PMHx: 21:10 COPD; lp1 - PSHx: 21:10 Hysterectomy; Neck surgery; lp1 - Immunization history:: Adult Immunizations up to date. - Social history:: Smoking status: Patient/guardian denies using tobacco. - Ebola Screening: : No symptoms or risks identified at this time. Screenin:11 Abuse screen: Denies threats or abuse. Denies injuries from another. Nutritional lp1 screening: No deficits noted. Tuberculosis screening: No symptoms or risk factors identified. Fall Risk None identified. Assessment: 21:04 General: Appears in no apparent distress. uncomfortable, Behavior is calm, cooperative, jd3 appropriate for age. Pain: Denies pain. Neuro: Level of Consciousness is awake, alert, obeys commands, Oriented to person, place, time, situation. Cardiovascular: Capillary refill < 3 seconds Patient's skin is warm and dry. Respiratory: Airway is patent Respiratory effort is even, unlabored, Respiratory pattern is regular, symmetrical, Denies cough, shortness of breath. GI: No signs and/or symptoms were reported involving the gastrointestinal system. : No signs and/or symptoms were reported regarding the genitourinary system. EENT: No signs and/or symptoms were reported regarding the EENT system. Derm: Skin is intact, Skin is dry, Skin is normal, Skin temperature is warm. Musculoskeletal: Circulation, motion, and sensation intact. Range of motion: intact in all extremities, Swelling present in lower lip. 22:05 Reassessment: Patient appears in no apparent distress at this time. Patient and/or jd3 family updated on plan of care and expected duration. Pain level reassessed. Patient is alert, oriented x 3, equal unlabored respirations, skin warm/dry/pink. Patient states feeling better. 23:01 Reassessment: Patient appears in no apparent distress at this time. Patient and/or jd3 family updated on plan of care and expected duration. Pain level reassessed. Patient is alert, oriented x 3, equal unlabored respirations, skin warm/dry/pink. Patient states feeling better. Vital Signs: 21:10 BP 141 / 84; Pulse 83; Resp 18; Temp 98.4(O); Pulse Ox 96% on R/A; Weight 68.04 kg; lp1 Height 5 ft. 0 in. (152.40 cm); Pain 8/10; 22:09 BP 141 / 92; Pulse 82; Resp 17 S; Pulse Ox 97% on R/A; jd3 21:10 Body Mass Index 29.29 (68.04 kg, 152.40 cm) lp1 ED Course: 20:52 Patient arrived in ED. es 21:03 Travon Quintero MD is Attending Physician. tw4 21:04 Bo Ferrera, MAGI is Primary Nurse. jd3 21:09 Triage completed. lp1 21:10 Inserted saline lock: 20 gauge in right antecubital area, using aseptic technique. jd3 Blood collected. 21:11 Arm band placed on. lp1 22:09 Patient has correct armband on for positive identification. Bed in low position. Call jd3 light in reach. Side rails up X 1. Adult w/ patient. 23:01 No provider procedures requiring assistance completed. IV discontinued, intact, jd3 bleeding controlled, No redness/swelling at site. Pressure dressing applied. Administered Medications: 21:20 Drug: SOLU-Medrol 125 mg Route: IVP; Site: right antecubital; jd3 22:00 Follow up: Response: No adverse reaction jd3 21:20 Drug: Benadryl 50 mg Route: IVP; Site: right antecubital; jd3 22:00 Follow up: Response: No adverse reaction jd3 21:20 Drug: Pepcid 20 mg Route: IVP; Site: right antecubital; jd3 22:00 Follow up: Response: No adverse reaction jd3 Outcome: 22:46 Discharge ordered by . tw4 23:01 Discharged to home ambulatory, with family. jd3 23:01 Condition: stable 23:01 Discharge instructions given to patient, family, Instructed on discharge instructions, follow up and referral plans. medication usage, Demonstrated understanding of instructions, follow-up care, medications, Prescriptions given X 2. 23:02 Patient left the ED. jd3 Signatures: Marissa Winter Laura RN RN lp1 Bo Ferrera RN RN jd3 Travon Quintero MD MD tw4 Corrections: (The following items were deleted from the chart) 21:11 21:08 Presenting complaint: Patient states: Lower lip swelling that began at 1800 lp1 tonight; Denies any allergies, anything new used; States taking 2 tablets of Loratidine about 1 hour ago lp1 21:29 19:25 Pepcid 20 mg IVP in right antecubital jd3 jd3
== END 2018-11-04 23:02 | disposition home or self-care (01) ==
LOC: ER 20:48
DX: T78.3XXA Angioneurotic edema, initial encounter (principal); T78.40XA Allergy, unspecified, initial encounter; X58.XXXA Exposure to other specified factors, initial encounter; J44.9 Chronic obstructive pulmonary disease, unspecified; Z79.51 Long term (current) use of inhaled steroids; Z79.899 Other long term (current) drug therapy
CPT/HCPCS: 96374; 96375; 99284; J2930

== ENCOUNTER 2018-11-16 22:39 | Observation (INO) | payer OTHER ==
--- OUTSIDE RECORDS SUMMARY | 2018-11-16 22:40 | XMS REPORT | Continuity of Care Document ---
[...] Type Number For Provider Date Date Visit [facility] Outpt Diag [id number] Bree 04/24 04/25 [facility] [place] Procedures Procedure Code Date Perfomer Comments Source
[2018-11-16 23:54] LABS: Absolute Lymphocytes (CBC) 2.4 K/uL (0.7-4.9); Absolute Monocytes 0.9 K/uL (0.1-1.3); Absolute Neutrophil 7.3 K/uL (1.8-8.0); Basophils % 1.1 % (0-1.3); Eosinophils % 3.1 % (0-4.4); Hematocrit 44.1 % (36.0-45.0); Lymphocytes % 21.4 % (15.3-44.8); MPV 8.8 fL (7.6-11.3); Monocytes % 8.5 % (3.3-12.3); RBC Red Blood Cell Count 5.28 M/uL (3.86-4.86)
[2018-11-16 23:57] LABS: Protime INR 1.06
[2018-11-17 00:15] LABS: ALT/SGPT 22 U/L (12-78); AST/SGOT 12 U/L (15-37); Albumin 3.1 g/dL (3.4-5.0); Alkaline Phosphatase 117 U/L (45-117); BUN Blood Urea Nitrogen 12 mg/dL (7-18); Bicarbonate 26 mmol/L (21-32); Bilirubin Direct 0.1 mg/dL (0-0.2); Bilirubin Total 0.3 mg/dL (0.2-1.0); Glucose Level 92 mg/dL (74-106); Magnesium 2.4 mg/dL (1.8-2.4); NT PRO-BNP 76 pg/mL (<125); Potassium 3.8 mmol/L (3.5-5.1); Protein, Total 7.6 g/dL (6.4-8.2); Sodium Level 142 mmol/L (136-145); Troponin (Emerg Dept Use Only) < 0.02 ng/mL (0.0-0.045)
[2018-11-17] MEDS ORDERED: DIPHENHYDRAMINE 50 MG/ML VIAL ONE (01:10)
[2018-11-17] MEDS ORDERED: ALBUTEROL 2.5 MG/3 ML NEB SOL ONE (01:10)
[2018-11-17] MEDS ORDERED: FAMOTIDINE 20 MG/2 ML VIAL IV ONE (01:10)
[2018-11-17] MEDS ORDERED: IPRATROPIUM BROM 0.5MG/2.5ML ONE (01:10)
[2018-11-17] MEDS ORDERED: METHYLPREDNISOLONE 125 MG INJ ONE (01:10)
[2018-11-17] MEDS ORDERED: NA CHLORIDE 0.9% 1,000 ML ONE (01:36)
[2018-11-17] MEDS ORDERED: Levofloxacin500mg IV 500 MG/100 ML BAG IV ONE (01:36)
[2018-11-17] MEDS ORDERED: ONDANSETRON 4 MG/2 ML VIAL IV PRN (01:55)
[2018-11-17] MEDS ORDERED: MAGNESIUM HYDROXIDE 8% 30 ML PO PRN (01:55)
[2018-11-17] MEDS ORDERED: METHYLPREDNISOLONE 125 MG INJ IV ONE (01:55)
[2018-11-17] MEDS ORDERED: ALPRAZOLAM 0.25 MG TABLET PO PRN (01:55)
[2018-11-17] MEDS ORDERED: NA CHLORIDE 0.9% 1,000 ML IV SCH (02:00)
[2018-11-17] MEDS: ALBUTEROL 2.5 MG/3 ML NEB SOL NEB SCH ×2 (02:00→07:59)
[2018-11-17] MEDS: IPRATROPIUM BROM 0.5MG/2.5ML NEB SCH ×3 (02:00→14:21)
--- NOTE | 2018-11-17 02:18 | ER ---
Nurse's Notes [facility] Name: Jasmine Vazquez Age: 63 yrs Sex: Female : 1955 Arrival Date: 11/16/2018 Time: 22:40 Bed 25 Private MD: Diagnosis: Chronic obstructive pulmonary disease with (acute) exacerbation;Lobar pneumonia, unspecified organism;Angioneurotic edema Presentation: 11/16 23:12 Presenting complaint: Patient states: Productive cough, fever, shortness of breath and aj1 chest pain for the past week. Patient reports that she has an appointment with her doctor tomorrow, but was feeling worse and she is worried that she has developed pneumonia. Patient states that she noticed that her upper lip had started swelling at 2100 tonight, states that she was seen on November 04, 2018 for the same complaint of lip swelling, they did some labs and gave her some steroids and she was discharged at that time and her swelling went away until tonight. Patient also reports that she recently had strep and now her throat is hurting. Redness noted to throat and uvula, bloody discharge noted to uvula. Transition of care: patient was not received from another setting of care. Onset of symptoms was October 2018. Risk Assessment: Do you want to hurt yourself or someone else? Patient reports no desire to harm self or others. Initial Sepsis Screen: Does the patient meet any 2 criteria? No. Patient's initial sepsis screen is negative. Does the patient have a suspected source of infection? No. Patient's initial sepsis screen is negative. Care prior to arrival: None. 23:12 Method Of Arrival: Wheelchair aj1 23:12 Acuity: RAKAN 2 aj1 Triage Assessment: 23:18 General: Appears in no apparent distress. uncomfortable, Behavior is calm, cooperative, aj1 appropriate for age. Pain: Complains of pain in chest Pain does not radiate. Pain currently is 8 out of 10 on a pain scale. Pain began one week ago Aggravated by coughing. Cardiovascular: Patient's skin is warm and dry. Historical: - Allergies: 23:17 PENICILLINS; aj1 - Home Meds: 23:17 Advair Diskus Inhl [Active]; diclofenac Oral [Active]; Ventolin Rotahaler/Rotacaps Inhl aj1 [Active]; 11/17 02:58 Amitriptyline Oral [Active]; mg2 - PMHx: 11/16 23:17 COPD; titanium in neck; aj1 - Immunization history:: Flu vaccine is not up to date. - Social history:: Smoking status: Patient uses tobacco products, 5 cigarettes per day. - Ebola Screening: : Patient denies travel to an Ebola-affected area in the 21 days before illness onset. Screenin:19 Abuse screen: Denies threats or abuse. Denies injuries from another. Nutritional aj1 screening: No deficits noted. Tuberculosis screening: No symptoms or risk factors identified. 11/17 02:58 Fall Risk IV access (20 points). mg2 Assessment: 11/16 23:19 General: Appears in no apparent distress. uncomfortable, Behavior is calm, cooperative, aj1 appropriate for age. Pain: Complains of pain in chest Pain does not radiate. Pain currently is 8 out of 10 on a pain scale. Pain: Pain began one week ago Is continuous. Neuro: Level of Consciousness is awake, alert, obeys commands. Cardiovascular: Reports chest pain, shortness of breath, Heart tones S1 S2 present Patient's skin is warm and dry. Rhythm is sinus rhythm. Respiratory: Airway is patent Respiratory effort is even, unlabored, Respiratory pattern is regular, symmetrical, Breath sounds with wheezes bilaterally. Respiratory: Reports shortness of breath at rest cough that is productive, hacking, persistent. GI: No signs and/or symptoms were reported involving the gastrointestinal system. : No signs and/or symptoms were reported regarding the genitourinary system. 23:19 EENT: Swelling noted to left upper lip. Throat is reddened bilaterally Uvula is aj1 reddened with bloody drainage noted. Reports nasal congestion nasal discharge. Derm: No signs and/or symptoms reported regarding the dermatologic system. Skin is pink, warm \T\ dry. normal. Musculoskeletal: No signs and/or symptoms reported regarding the musculoskeletal system. Circulation, motion, and sensation intact. 23:52 Reassessment: Patient appears in no apparent distress at this time. No changes from aj1 previously documented assessment. Patient and/or family updated on plan of care and expected duration. Pain level reassessed. Patient is alert, oriented x 3, equal unlabored respirations, skin warm/dry/pink. 11/17 00:45 Reassessment: Notified Dr Blackburn that the swelling to patient's upper lip has increased. aj1 00:45 Reassessment: Patient and/or family updated on plan of care and expected duration. Pain aj1 level reassessed. General: Appears in no apparent distress. uncomfortable, Behavior is calm, cooperative, appropriate for age. Neuro: Level of Consciousness is awake, alert, obeys commands. Cardiovascular: Rhythm is sinus rhythm. Respiratory: Airway is patent Respiratory effort is even, unlabored, Respiratory pattern is regular, symmetrical. 00:51 Reassessment: Dr. Blackburn at bedside. aj1 02:54 Reassessment: Patient appears in no apparent distress at this time. Patient and/or mg2 family updated on plan of care and expected duration. Pain level reassessed. Patient is alert, oriented x 3, equal unlabored respirations, skin warm/dry/pink. advised for admission. patient agreed. swollen upper lip subsided. Vital Signs: 11/16 23:18 BP 119 / 80; Pulse 86; Resp 21; Temp 99.0; Pulse Ox 95% on R/A; Weight 70.31 kg (R); aj1 Height 4 ft. 9 in. (144.78 cm) (R); Pain 8/10; 23:52 BP 124 / 81; Pulse 90; Resp 22; Pulse Ox 94% on R/A; aj1 02/04 00:15 BP 116 / 81; Pulse 81; Resp 20; Pulse Ox 100% on R/A; aj1 00:45 BP 130 / 81; Pulse 83; Resp 20; Pulse Ox 98% on R/A; aj1 02:07 BP 127 / 63; Pulse 83; Resp 18; Pulse Ox 97% on R/A; Pain 0/10; mg2 02:55 BP 116 / 48; Pulse 80; Resp 18; Pulse Ox 100% on R/A; Pain 0/10; mg2 02/03 23:18 Body Mass Index 33.54 (70.31 kg, 144.78 cm) aj1 ED Course: 11/16 22:40 Patient arrived in ED. am2 23:11 Laurie Patrick, RN is Primary Nurse. aj1 23:16 Triage completed. aj1 23:18 Arm band placed on Patient placed in an exam room. aj1 23:19 Patient has correct armband on for positive identification. Bed in low position. Call aj1 light in reach. Adult w/ patient. turret punch operator on. Pulse ox on. NIBP on. Door closed. Warm blanket given. 23:19 No provider procedures requiring assistance completed. Patient maintains SpO2 aj1 saturation greater than 95% on room air. 23:31 Inserted saline lock: 20 gauge in right antecubital area, using aseptic technique. aj1 Blood collected. 23:52 X-ray completed. Portable x-ray completed in exam room. Patient tolerated procedure kw well. 23:55 XRAY Chest (1 view) In Process Unspecified. EDRI 11/17 00:35 Akbar Blackburn MD is Attending Physician. gs 01:08 Report given to MAGI Galindo. aj1 02:13 Maryam Dennis MD is Hospitalizing Provider. gs 03:07 Patient admitted, IV remains in place. aj1 Administered Medications: 01:07 Drug: Albuterol 2.5 mg Route: Inhalation; aj1 02:58 Follow up: Response: No adverse reaction; Marked relief of symptoms mg2 01:07 Drug: AtroVENT Aerosol 0.5 mg Route: Inhalation; aj1 02:57 Follow up: Response: No adverse reaction; Marked relief of symptoms mg2 01:07 Drug: SOLU-Medrol 125 mg Route: IVP; Site: right antecubital; aj1 02:57 Follow up: Response: No adverse reaction; Marked relief of symptoms mg2 01:07 Drug: Pepcid 20 mg Route: IVP; Site: right antecubital; aj1 02:57 Follow up: Response: No adverse reaction; Marked relief of symptoms mg2 01:07 Drug: Benadryl 25 mg Route: IVP; Site: right antecubital; aj1 02:57 Follow up: Response: No adverse reaction; Marked relief of symptoms mg2 01:53 Drug: LevaQUIN 500 mg Volume: 100 ml; Route: IVPB; Infused Over: 60 mins; Site: right mg2 antecubital; 02:57 Follow up: Response: No adverse reaction; IV Status: Completed infusion mg2 01:54 Drug: NS 0.9% 1000 ml Route: IV; Rate: 1 bolus; Site: right antecubital; mg2 02:57 Follow up: Response: No adverse reaction; Marked relief of symptoms mg2 02:57 Follow up: Response: No adverse reaction; IV Status: Completed infusion mg2 Outcome: 02:17 Decision to Hospitalize by Provider. gs 03:07 Admitted to Med/surg accompanied by tech, room 213. aj1 03:07 Condition: stable 03:07 Instructed on the need for admit, Demonstrated understanding of instructions. 03:20 Patient left the ED. mg2 Signatures: Dispatcher [employer] Laurie Kim RN RN aj1 Stephanie Goldsmith Amanda am2 Akbar Blackburn MD MD gs Gardose, Michele, RN RN mg2 Corrections: (The following items were deleted from the chart) 11/16 23:18 23:17 Social history: Smoking status: Patient/guardian denies using tobacco, aj1 aj1 23:31 23:19 EENT: Reports nasal congestion nasal discharge aj1 aj1
--- NOTE | 2018-11-17 02:18 | EDPHYS ---
Physician Documentation [facility] Name: Jasmine Vazquez Age: 63 yrs Sex: Female : 1955 Arrival Date: 11/16/2018 Time: 22:40 Bed 25 Private MD: ED Physician Akbar Blackburn HPI: 11/17 01:58 This 63 yrs old Female presents to ER via Wheelchair with complaints of Lips gs Swelling, Doesn't Feel Right, Chest Pain > 30 y/o, Cough. 01:58 The patient or guardian reports cough, that is intermittent, difficulty breathing, flu gs symptoms, arthralgias, low-grade fever, myalgias, no appetite. Onset: The symptoms/episode began/occurred 2 day(s) ago, and became worse and became persistent. Severity of symptoms: At their worst the symptoms were moderate, in the emergency department the symptoms are unchanged. Modifying factors: The symptoms are alleviated by nothing, the symptoms are aggravated by nothing. Associated signs and symptoms: Pertinent positives: upper lip swelling has had before. recently saw dr giron for same.. The patient has experienced similar episodes in the past, a few times. Historical: - Allergies: 11/16 23:17 PENICILLINS; aj1 - Home Meds: 23:17 Advair Diskus Inhl [Active]; diclofenac Oral [Active]; Ventolin Rotahaler/Rotacaps Inhl aj1 [Active]; 11/17 02:58 Amitriptyline Oral [Active]; mg2 - PMHx: 11/16 23:17 COPD; titanium in neck; aj1 - Immunization history:: Flu vaccine is not up to date. - Social history:: Smoking status: Patient uses tobacco products, 5 cigarettes per day. - Ebola Screening: : Patient denies travel to an Ebola-affected area in the 21 days before illness onset. ROS: 11/17 01:58 All other systems are negative. gs Exam: 01:58 Head/Face: Normocephalic, atraumatic. Eyes: Pupils equal round and reactive to light, gs extra-ocular motions intact. Lids and lashes normal. Conjunctiva and sclera are non-icteric and not injected. Cornea within normal limits. Periorbital areas with no swelling, redness, or edema. Neck: Trachea midline, no thyromegaly or masses palpated, and no cervical lymphadenopathy. Supple, full range of motion without nuchal rigidity, or vertebral point tenderness. No Meningismus. Chest/axilla: Normal chest wall appearance and motion. Nontender with no deformity. No lesions are appreciated. Cardiovascular: Regular rate and rhythm with a normal S1 and S2. No gallops, murmurs, or rubs. Normal PMI, no JVD. No pulse deficits. Abdomen/GI: Soft, non-tender, with normal bowel sounds. No distension or tympany. No guarding or rebound. No evidence of tenderness throughout. Back: No spinal tenderness. No costovertebral tenderness. Full range of motion. Skin: Warm, dry with normal turgor. Normal color with no rashes, no lesions, and no evidence of cellulitis. MS/ Extremity: Pulses equal, no cyanosis. Neurovascular intact. Full, normal range of motion. Neuro: Awake and alert, GCS 15, oriented to person, place, time, and situation. Cranial nerves II-XII grossly intact. Motor strength 5/5 in all extremities. Sensory grossly intact. Cerebellar exam normal. Normal gait. 01:58 Constitutional: The patient appears alert, awake. 01:58 ENT: Mouth: Lips: upper donna border, swelling. 01:58 Respiratory: the patient does not display signs of respiratory distress, Respirations: normal, symetrical, no use of accessory muscles, Breath sounds: rales, that are moderate, are heard in the right posterior lower lobe, rhonchi, stridor, is not appreciated. 01:58 ECG was reviewed by the Attending Physician. Vital Signs: 11/16 23:18 BP 119 / 80; Pulse 86; Resp 21; Temp 99.0; Pulse Ox 95% on R/A; Weight 70.31 kg (R); aj1 Height 4 ft. 9 in. (144.78 cm) (R); Pain 8/10; 23:52 BP 124 / 81; Pulse 90; Resp 22; Pulse Ox 94% on R/A; aj1 04 00:15 BP 116 / 81; Pulse 81; Resp 20; Pulse Ox 100% on R/A; aj1 00:45 BP 130 / 81; Pulse 83; Resp 20; Pulse Ox 98% on R/A; aj1 02:07 BP 127 / 63; Pulse 83; Resp 18; Pulse Ox 97% on R/A; Pain 0/10; mg2 02:55 BP 116 / 48; Pulse 80; Resp 18; Pulse Ox 100% on R/A; Pain 0/10; mg2 11/16 23:18 Body Mass Index 33.54 (70.31 kg, 144.78 cm) MDM: 00:52 Patient medically screened. 02:09 Differential Diagnosis: Bronchitis Influenza Pneumonia Other cad,angioedema. Data reviewed: vital signs, nurses notes, old medical records, lab test result(s), EKG, radiologic studies. Counseling: I had a detailed discussion with the patient and/or guardian regarding: the historical points, exam findings, and any diagnostic results supporting the discharge/admit diagnosis, the need for further work-up and treatment in the hospital. Response to treatment: the patient's symptoms have markedly improved after treatment, and as a result, I will admit patient. 11/16 23:36 Order name: Basic Metabolic Panel; Complete Time: 00:42 11/16 23:36 Order name: CBC with Diff; Complete Time: 00:42 11/16 23:36 Order name: LFT's; Complete Time: 00:42 11/16 23:36 Order name: Magnesium; Complete Time: 00:42 11/16 23:36 Order name: NT PRO-BNP; Complete Time: 00:42 11/16 23:36 Order name: PT-INR; Complete Time: 00:42 11/16 23:36 Order name: Troponin (emerg Dept Use Only); Complete Time: 00:42 11/16 23:36 Order name: XRAY Chest (1 view) 11/17 01:15 Order name: Blood Culture* 11/16 23:36 Order name: EKG; Complete Time: 23:36 11/16 23:36 Order name: Cardiac monitoring; Complete Time: 23:36 11/16 23:36 Order name: EKG - Nurse/Tech; Complete Time: 23:36 11/16 23:36 Order name: IV Saline Lock; Complete Time: 23:36 11/16 23:36 Order name: Labs collected and sent; Complete Time: 23:36 11/16 23:36 Order name: O2 Per Protocol; Complete Time: 23:36 03 23:36 Order name: O2 Sat Monitoring; Complete Time: 23:36 11/17 02:00 Order name: Heart Healthy EDMS EC:58 Rate is 87 beats/min. Rhythm is regular. IL interval is normal. QRS interval is normal. gs T waves are Normal. No ST changes noted. Clinical impression: Abnormal EKG without significant change. Interpreted by me. Administered Medications: 01:07 Drug: Albuterol 2.5 mg Route: Inhalation; aj1 02:58 Follow up: Response: No adverse reaction; Marked relief of symptoms mg2 01:07 Drug: AtroVENT Aerosol 0.5 mg Route: Inhalation; aj1 02:57 Follow up: Response: No adverse reaction; Marked relief of symptoms mg2 01:07 Drug: SOLU-Medrol 125 mg Route: IVP; Site: right antecubital; aj1 02:57 Follow up: Response: No adverse reaction; Marked relief of symptoms mg2 01:07 Drug: Pepcid 20 mg Route: IVP; Site: right antecubital; aj1 02:57 Follow up: Response: No adverse reaction; Marked relief of symptoms mg2 01:07 Drug: Benadryl 25 mg Route: IVP; Site: right antecubital; aj1 02:57 Follow up: Response: No adverse reaction; Marked relief of symptoms mg2 01:53 Drug: LevaQUIN 500 mg Volume: 100 ml; Route: IVPB; Infused Over: 60 mins; Site: right mg2 antecubital; 02:57 Follow up: Response: No adverse reaction; IV Status: Completed infusion mg2 01:54 Drug: NS 0.9% 1000 ml Route: IV; Rate: 1 bolus; Site: right antecubital; mg2 02:57 Follow up: Response: No adverse reaction; Marked relief of symptoms mg2 02:57 Follow up: Response: No adverse reaction; IV Status: Completed infusion mg2 Disposition: 11/17/18 02:17 Hospitalization ordered by Maryam Dennis for Observation. Preliminary diagnosis are Chronic obstructive pulmonary disease with (acute) exacerbation, Lobar pneumonia, unspecified organism, Angioneurotic edema. - Bed requested for Telemetry/MedSurg (observation). - Status is Observation. mg2 - Condition is Stable. - Problem is new. - Symptoms have improved. UTI on Admission? No Critical care time excluding procedures: 02:09 Critical care time: Bedside Care: 10 minutes, Consultation: 10 minutes, Family gs Intervention: 10 minutes. Total time: 30 minutes Signatures: Dispatcher [employer] EDLaurie Astorga RN RN aj1 Lety Ann RN RN bb Akbar Blackburn MD MD gs Gardose, Michele, RN RN mg2 Corrections: (The following items were deleted from the chart) 11/16 23:18 23:17 Social history: Smoking status: Patient/guardian denies using tobacco, aj1 aj1 11/17 02:58 02:17 Hospitalization Ordered by Maryam Dennis MD for Observation. Preliminary bb diagnosis is Chronic obstructive pulmonary disease with (acute) exacerbation; Lobar pneumonia, unspecified organism; Angioneurotic edema. Bed requested for Telemetry/MedSurg (observation). Status is Observation. Condition is Stable. Problem is new. Symptoms have improved. UTI on Admission? No. gs 03:20 02:58 11/17/2018 02:17 Hospitalization Ordered by Maryam Dennis MD for Observation. mg2 Preliminary diagnosis is Chronic obstructive pulmonary disease with (acute) exacerbation; Lobar pneumonia, unspecified organism; Angioneurotic edema. Bed requested for Telemetry/MedSurg (observation). Status is Observation. Condition is Stable. Problem is new. Symptoms have improved. UTI on Admission? No. bb
[2018-11-17 05:27] LABS: Urine Appearance CLEAR; Urine Bilirubin NEGATIVE (NEG); Urine Blood NEGATIVE (NEG); Urine Color YELLOW; Urine Glucose NEGATIVE (NEG); Urine Protein NEGATIVE (NEG); Urine Specific Gravity 1.015 (1.005-1.030); Urine Urobilinogen 0.2 mg/dL (0.2-1.0); Urine pH 5.5 (5.0-7.0)
[2018-11-17 05:33] LABS: Urine Microscopic Reflex NO UMIC
[2018-11-17] MEDS ORDERED: METHYLPREDNISOLONE 125 MG INJ IV SCH (06:00)
--- NOTE | 2018-11-17 07:23 | EKG ---
Test Date: 2018-11-16 Test Time: 22:56:38 Barrel Scraper: SILVIA MEASUREMENT RESULTS: Intervals: Rate: 87 CO: 120 QRSD: 80 QT: 358 QTc: 430 Bradner: P: 65 CO: 120 QRS: 17 T: 62 INTERPRETIVE STATEMENTS: Normal sinus rhythm Possible Left atrial enlargement Borderline ECG Compared to ECG 05/24/1997 16:50:00 Sinus bradycardia no longer present Electronically Signed On 11-17-18 07:14:59 MICROFILM MACHINE OPERATOR by Kishan Carrillo
[2018-11-17] MEDS ORDERED: INFLUENZA VACCINE (for 3y+) 0.5 ML DOSE IMVAC ONE (08:00)
--- NOTE | 2018-11-17 08:15 | RAD REPORT ---
EXAM DESCRIPTION: RAD - Chest Single View - 11/16/2018 11:54 pm CLINICAL HISTORY: SOB Chest pain. COMPARISON: Chest Pa And Lat (2 Views) dated 09/17/2018; Chest Pa And Lat (2 Views) dated 03/03/2018 FINDINGS: Portable technique limits examination quality. The lungs are grossly clear. The heart is normal in size. No displaced fractures.Hardware plate is pr esent in the cervical spine. IMPRESSION: No acute intrathoracic process suspected.
[2018-11-17] MEDS ORDERED: ALBUTEROL 2.5 MG/3 ML NEB SOL NEB PRN (08:46)
--- NOTE | 2018-11-17 08:47 | P.CNS ---
Date of Consult: 11/17/18 Chief Complaint: Productive cough is swelling of the lips History of Present Illness: Patient is 63 years of age admitted with swelling of her upper lip and left side of her face as been having cough or a past week productive sputum patient has a history of obstructive airways disease in uses Advair twice a day does not smoke she was recently in the hospital with swelling of her bottom lip they resolved his 2nd time she has had also complains of pain in the right lower chest patient takes Advair at home Allergies Penicillins Allergy (Verified 11/17/18 04:04) Itching/Hives/Rash - Past Medical/Surgical History Diabetic: No -: COPD -: Titanium in neck - Family History Father Medical History: Diabetes - Social History Smoking Status: Former smoker Alcohol use: No CD- Drugs: No Caffeine use: No Place of Residence: Home Review of Systems 10-point ROS is otherwise unremarkable Respiratory: Cough, Shortness of Breath Physical Examination Temp Pulse Resp BP Pulse Ox 97.9 F 84 18 130/77 94 11/17/18 04:00 11/17/18 04:00 11/17/18 04:00 11/17/18 04:00 11/17/18 04:00 General: Alert, In no apparent distress, Oriented x3 HEENT: Atraumatic Neck: Supple Respiratory: Diminished Cardiovascular: No edema, Normal S1 S2 Laboratory Data (last 24 hrs) 11/16/18 23:31: PT 12.5, INR 1.06 11/16/18 23:31: WBC 11.1 H, Hgb 14.6, Hct 44.1, Plt Count 387 11/16/18 23:31: Sodium 142, Potassium 3.8, BUN 12, Creatinine 1.11, Glucose 92, Magnesium 2.4, Total Bilirubin 0.3, AST 12 L, ALT 22, Alkaline Phosphatase 117 - Problems (1) COPD exacerbation Current Visit: Yes Status: Acute Plan: Patient is 63 years of age I suspect that she has underlying obstructive airways disease admitted with worsening cough shortness of breath productive phlegm describes a green in color uses Advair at home does not smoke also complain of swelling of her lips chemistries unremarkable white count is mildly elevated chest x-ray clear need to get a list of her home medications patient's vital signs are stable room-air sat is satisfactory blood pressure normal I am not sure why she is having filing of her lips need to evaluate diet and review medication list
[2018-11-17] MEDS ORDERED: CEFUROXIME 250 MG TAB PO SCH (09:00)
[2018-11-17] MEDS ORDERED: ENOXAPARIN 40 MG/0.4 ML SQ SCH (09:00)
[2018-11-17] MEDS ORDERED: predniSONE 20 MG TAB PO SCH (09:00)
[2018-11-17] MEDS ORDERED: POTASSIUM CL SA 10 MEQ TAB PO ONE (09:00)
--- NOTE | 2018-11-17 10:02 | P.HP ---
Certification for Inpatient Patient admitted to: Observation With expected LOS: <2 Midnights Patient will require the following post-hospital care: None Practitioner: I am a practitioner with admitting privileges, knowledge of patient current condition, hospital course, and medical plan of care. Services: Services provided to patient in accordance with Admission requirements found in Title 42 Section 412.3 of the Code of Federal Regulations Patient History Date of Service: 11/17/18 Reason for admission: asthma exacerbation /angioedema History of Present Illness: Patient is a 63-year-old female who has a history of asthma. She takes her Advair inhaler daily. She does have occasional flare ups of her asthma. She had difficulty breathing and was having cough and congestion. she was severely short of breath and in the ER she had to be given neb treatments x3. She was started on IV steroids and admitted to the hospital for observation. Will check peak flows as well. Allergies Penicillins Allergy (Verified 11/17/18 04:04) Itching/Hives/Rash - Past Medical/Surgical History Has patient received pneumonia vaccine in the past: No Diabetic: No -: Asthma -: Titanium in neck - Family History Father Medical History: Diabetes - Social History Smoking Status: Former smoker Alcohol use: No CD- Drugs: No Caffeine use: No Place of Residence: Home Review of Systems 10-point ROS is otherwise unremarkable Physical Examination - Vital Signs Temperature: 97.9 F Blood Pressure: 130/77 Pulse: 84 Respirations: 18 Pulse Ox (%): 94 - Physical Exam General: Alert, In no apparent distress, Oriented x3 HEENT: Atraumatic, PERRLA, Mucous membr. moist/pink, EOMI, Sclerae nonicteric Neck: Supple, 2+ carotid pulse no bruit, No LAD, Without JVD or thyroid abnormality Respiratory: Expiratory wheezes Cardiovascular: Regular rate/rhythm, Normal S1 S2, No murmurs Gastrointestinal: Normal bowel sounds, Soft and benign, Non-distended, No tenderness Musculoskeletal: No tenderness Integumentary: No rashes Neurological: Normal gait, Normal speech, Normal strength at 5/5 x4 extr, Normal tone, Normal affect Lymphatics: No axilla or inguinal lymphadenopathy - Studies Laboratory Data (last 24 hrs) 11/16/18 23:31: PT 12.5, INR 1.06 11/16/18 23:31: WBC 11.1 H, Hgb 14.6, Hct 44.1, Plt Count 387 11/16/18 23:31: Sodium 142, Potassium 3.8, BUN 12, Creatinine 1.11, Glucose 92, Magnesium 2.4, Total Bilirubin 0.3, AST 12 L, ALT 22, Alkaline Phosphatase 117 Microbiology Data (last 24 hrs): 11/17/18 01:45 Blood - Blood Anaerobic Blood Culture - Final Assessment & Plan - Problems (Diagnosis) (1) Asthma exacerbation Current Visit: Yes Status: Acute - Plan -nebs, steroids, and antibiotics -O2 per protocol. -peak flow measurements -outpatient spirometry or pulmonary function testing -repeat chest x-ray -pulmonary consultation Discharge Plan: Home Plan to discharge in: 48 Hours - Advance Directives Does patient have a Living Will: No Does patient have a Durable POA for Healthcare: No - Code Status/Comfort Care Code Status Assessed: Yes Code Status: Full Code Critical Care: No Time Spent Managing PTS Care (In Minutes): 45
[2018-11-17] MEDS: ACETAMINOPHEN 500 MG TAB PO PRN ×2 (11:11→16:33)
--- NOTE | 2018-11-17 17:32 | P.DS ---
Admission Date: 11/17/18 Discharge Date: 11/17/18 Primary Care Provider: Dr. Harris; Pulmonary-Dr. Blackwell Disposition: ROUTINE DISCHARGE Discharge Condition: GOOD Reason for Admission: asthma exacerbation /angioedema Consultations: Pulmonary-Dr. Blackwell Procedures: Medical Problem List: COPD exacerbation Left lip swelling likely related to dentures Brief History of Present Illness: 63-year-old female presented emergency room with shortness of breath. Hospital Course: Patient presented with shortness of breath secondary to COPD exacerbation. Patient seen by pulmonology. Patient did well in her stay. At discharge she will continue with prednisone 20 mg 1 pill twice daily for 10 days. At discharge she will continue with Advair 250 mcg 2 puffs twice daily and Pro air 2 puffs 3 times a day as needed for shortness of breath. Patient will follow up with pulmonology in 1-2 weeks to follow up this hospitalization. Patient has dentures. Some irritation noted to the left upper lip. Patient may apply ice compress to the area to help with swelling. Recommend to not use her dentures for at least 1 week. Dentures may need to be replaced. Recommend follow up with dentist. Vital Signs/Physical Exam: Temp Pulse Resp BP Pulse Ox 97.8 F 89 20 110/63 94 11/17/18 12:00 11/17/18 12:00 11/17/18 12:00 11/17/18 12:00 11/17/18 12:00 General: Alert, In no apparent distress, Oriented x3, Cooperative HEENT: Atraumatic, Other (Patient with dentures. Some irritation to the left upper jaw.) Respiratory: Clear to auscultation bilaterally, Normal air movement Cardiovascular: Normal pulses, Regular rate/rhythm Gastrointestinal: Normal bowel sounds, Soft and benign, Non-distended Laboratory Data at Discharge: WBC 11.1 K/uL (4.3-10.9) H 11/16/18 23:31 Hgb 14.6 g/dL (12.0-15.0) 11/16/18 23:31 Hct 44.1 % (36.0-45.0) 11/16/18 23:31 Plt Count 387 K/uL (152-406) 11/16/18 23:31 PT 12.5 SECONDS (9.5-12.5) 11/16/18 23:31 INR 1.06 11/16/18 23:31 Sodium 142 mmol/L (136-145) 11/16/18 23:31 Potassium 3.8 mmol/L (3.5-5.1) 11/16/18 23:31 BUN 12 mg/dL (7-18) 11/16/18 23:31 Creatinine 1.11 mg/dL (0.55-1.3) 11/16/18 23:31 Glucose 92 mg/dL (74-106) 11/16/18 23:31 Magnesium 2.4 mg/dL (1.8-2.4) 11/16/18 23:31 Total Bilirubin 0.3 mg/dL (0.2-1.0) 11/16/18 23:31 AST 12 U/L (15-37) L 11/16/18 23:31 ALT 22 U/L (12-78) 11/16/18 23:31 Alkaline Phosphatase 117 U/L (45-117) 11/16/18 23:31 Home Medications: Albuterol Inhaler [Ventolin Inhaler*] 2 - 3 puff IH TID PRN #1 hfa.aer.ad Amitriptyline [Elavil*] 50 mg PO BEDTIME 11/17/18 Fluticasone/Salmeterol [Advair 250-50 Diskus] 1 each IH BID #1 blst.w.dev predniSONE [Prednisone*] 20 mg PO BID #20 tab 11/17/18 New Medications: Albuterol Inhaler [Ventolin Inhaler*] 2 - 3 puff IH TID PRN #1 hfa.aer.ad PRN Reason: Shortness Of Breath Fluticasone/Salmeterol [Advair 250-50 Diskus] 1 each IH BID #1 blst.w.dev predniSONE [Prednisone*] 20 mg PO BID #20 tab Patient Discharge Instructions: 1. Patient presented with shortness of breath secondary to COPD exacerbation. Patient seen by pulmonology. Patient did well in her stay. At discharge she will continue with prednisone 20 mg 1 pill twice daily for 10 days. At discharge she will continue with Advair 250 mcg 2 puffs twice daily and Pro air 2 puffs 3 times a day as needed for shortness of breath. Patient will follow up with pulmonology in 1-2 weeks to follow up this hospitalization. 2. Patient has dentures. Some irritation noted to the left upper lip. Patient may apply ice compress to the area to help with swelling. Recommend to not use her dentures for at least 1 week. Dentures may need to be replaced. Recommend follow up with dentist. Diet: Regular Activity: Ad dejon Followup: Tao Blackwell MD [ACTIVE - CAN ADMIT] - 1 Week Time spent managing pt's care (in minutes): 55
[2018-11-18] MEDS ORDERED: Levofloxacin500mg IV 500 MG/100 ML BAG IV SCH (02:00)
== END 2018-11-17 19:00 | disposition home or self-care (01) ==
LOC: ER 22:39 → ERHOLD 11-17 01:55 → 2ND 11-17 03:10
PROVIDERS: ADMIT Hospitalist; ATTEND Hospitalist
DX: J44.1 Chronic obstructive pulmonary disease with (acute) exacerbation (principal); R60.9 Edema, unspecified; Z88.0 Allergy status to penicillin
CPT/HCPCS: 36415; 71045; 80048; 80076; 81003; 83735; 83880; 84145; 84484; 85025; 85610; 87040 ×2; 87070; 87205; 93005; 94010; 94640; 94760 ×2; 96365; 96375; 99285; G0378 ×2; J1650; J2930 ×2; J7030 ×2; J7512

== ENCOUNTER 2019-03-31 20:59 | Emergency (ER) | payer OTHER ==
--- OUTSIDE RECORDS SUMMARY | 2019-03-31 21:02 | XMS REPORT | Continuity of Care Document ---
[...] Type Number For Provider Date Date Visit [facility] Outpt Diag [id number] Bree 04/24 04/25 [facility] [place] Procedures Procedure Code Date Perfomer Comments Source
[2019-03-31] MEDS ORDERED: MORPHINE 4 MG/ML SYR ONE (22:48)
[2019-03-31] MEDS ORDERED: ONDANSETRON 4 MG (ODT) TAB ONE (22:48)
--- NOTE | 2019-03-31 22:49 | EDPHYS ---
Physician Documentation [facility] Name: Jasmine Vazquez Age: 63 yrs Sex: Female : 1955 Arrival Date: 03/31/2019 Time: 21:05 Bed 18 Private MD: Kvng Harris E ED Physician Akbar Blackburn HPI: 03/31 22:18 This 63 yrs old Female presents to ER via Wheelchair with complaints of Knee jmm Pain, swelling. 22:18 The patient presents with pain, that is acute. Onset: The symptoms/episode jmm began/occurred today. Modifying factors: The symptoms are alleviated by nothing. the symptoms are aggravated by movement, weight bearing. Associated signs and symptoms: Pertinent negatives fever. This is a 63 year old female with a history of asthma that presents to the ED with complaints of left knee pain. Patient states noticing swelling yesterday with pain worsening today. Patient denies fever, denies injury. . Historical: - Allergies: 21:21 PENICILLINS; lp1 - Home Meds: 21:21 Advair Diskus Inhl [Active]; Ventolin Rotahaler/Rotacaps Inhl [Active]; Stiolto lp1 Respimat inhalation inhalation [Active]; - PMHx: 21:21 Asthma; titanium in neck; lp1 - PSHx: 21:21 Neck surgery; Hysterectomy; lp1 - Immunization history:: Adult Immunizations up to date. - Social history:: Smoking status: Patient uses tobacco products, denies chronic smoking, but will smoke occasionally. - Ebola Screening: : No symptoms or risks identified at this time. ROS: 22:18 Constitutional: Negative for fever, chills, and weight loss, Cardiovascular: Negative jmm for chest pain, palpitations, and edema, Respiratory: Negative for shortness of breath, cough, wheezing, and pleuritic chest pain. 22:18 MS/extremity: Positive for pain, swelling. 22:18 All other systems are negative. Exam: 22:18 Constitutional: This is a well developed, well nourished patient who is awake, alert, jmm and in no acute distress. Head/Face: atraumatic. Eyes: EOMI, no conjunctival erythema appreciated ENT: Moist Mucus Membranes Neck: Trachea midline, Supple Chest/axilla: Normal chest wall appearance and motion. Cardiovascular: Regular rate and rhythm. No edema appreciated Respiratory: Normal respirations, no respiratory distress appreciated Abdomen/GI: Non distended, soft Back: Normal ROM Skin: General appearance color normal 22:18 Musculoskeletal/extremity: ROM: intact in all extremities, limited active range of motion due to pain, in the left leg and left knee. 22:18 Skin: Appearance: Color: normal in color. 22:18 Neuro: Orientation: is normal, Mentation: is normal, Memory: is normal. 22:18 Psych: Behavior/mood is pleasant, cooperative. Vital Signs: 21:20 BP 130 / 82; Pulse 91; Resp 18; Pulse Ox 97% on R/A; Weight 72.57 kg; Height 4 ft. 9 lp1 in. (144.78 cm); Pain 10/10; 22:25 BP 149 / 78; Pulse 93; Resp 20; Temp 98.1; Pulse Ox 99% on R/A; Pain 10/10; ak1 21:20 Body Mass Index 34.62 (72.57 kg, 144.78 cm) lp1 MDM: 22:18 Patient medically screened. [facility] 22:47 Data reviewed: vital signs, nurses notes. Counseling: I had a detailed discussion with [facility] the patient and/or guardian regarding: the historical points, exam findings, and any diagnostic results supporting the discharge/admit diagnosis, radiology results, the need for outpatient follow up, to return to the emergency department if symptoms worsen or persist or if there are any questions or concerns that arise at home. 23:10 ED course: US revealed bakers cyst. Negative for DVT. Patient advised to follow up with [facility] ortho and otherwise given strict return precautions. patient understood and agrees with the plan of care. . 03/31 22:26 Order name: Extremity Venous Unilateral Ltd [facility] Administered Medications: 22:36 Drug: morphine 4 mg Route: IM; Site: left gluteus; ak1 23:03 Follow up: Response: No adverse reaction ak1 22:36 Drug: Zofran 4 mg Route: PO; ak1 22:37 Follow up: Response: No adverse reaction ak1 Disposition: 04/01 02:40 Co-signature as Attending Physician, Akbar Blackburn MD. Disposition: 03/31/19 22:48 Discharged to Home. Impression: Synovial cyst of popliteal space [Keyes], left knee. - Condition is Stable. - Discharge Instructions: Keyes Cyst. - Prescriptions for Tylenol- Codeine #3 300-30 mg Oral Tablet - take 1 tablet by ORAL route every 6 hours As needed; 20 tablet. - Medication Reconciliation Form, Thank You Letter, Antibiotic Education, Prescription Opioid Use form. - Follow up: Jason Rea MD; When: 2 - 3 days; Reason: Recheck today's complaints, Continuance of care, Re-evaluation by your physician. Signatures: Dispatcher [employer] EDMS Raghu Amaya PA PA jmm Pena, Laura, RN RN lp1 Nallely Burgess RN RN ak1 Akbar Blackburn MD MD gs Corrections: (The following items were deleted from the chart) 03/31 23:11 22:48 03/31/2019 22:48 Discharged to Home. Impression: Synovial cyst of popliteal space ak1 [Keyes], left knee. Condition is Stable. Forms are Medication Reconciliation Form, Thank You Letter, Antibiotic Education, Prescription Opioid Use. Follow up: Jason Rea; When: 2 - 3 days; Reason: Recheck today's complaints, Continuance of care, Re-evaluation by your physician. dru
--- NOTE | 2019-03-31 22:49 | ER ---
Nurse's Notes [facility] Name: Jasmine Vazquez Age: 63 yrs Sex: Female : 1955 Arrival Date: 03/31/2019 Time: 21:05 Bed 18 Private MD: Kvng Harris E Diagnosis: Synovial cyst of popliteal space [Keyes], left knee Presentation: 03/31 21:18 Presenting complaint: Patient states: Pain behind left knee, went to customer service advocate appt lp1 today and doctor states knee pain related to keyes's cyst and to follow up with PCP; Patient states unable to tolerate pain to left knee, complaint of swelling and unable to bear weight. Transition of care: patient was not received from another setting of care. Onset of symptoms was March 31, 2019. Risk Assessment: Do you want to hurt yourself or someone else? Patient reports no desire to harm self or others. Initial Sepsis Screen: Does the patient meet any 2 criteria? No. Patient's initial sepsis screen is negative. Does the patient have a suspected source of infection? No. Patient's initial sepsis screen is negative. Care prior to arrival: None. 21:18 Method Of Arrival: Wheelchair lp1 21:18 Acuity: RAKAN 4 lp1 Historical: - Allergies: 21:21 PENICILLINS; lp1 - Home Meds: 21:21 Advair Diskus Inhl [Active]; Ventolin Rotahaler/Rotacaps Inhl [Active]; Stiolto lp1 Respimat inhalation inhalation [Active]; - PMHx: 21:21 Asthma; titanium in neck; lp1 - PSHx: 21:21 Neck surgery; Hysterectomy; lp1 - Immunization history:: Adult Immunizations up to date. - Social history:: Smoking status: Patient uses tobacco products, denies chronic smoking, but will smoke occasionally. - Ebola Screening: : No symptoms or risks identified at this time. Screenin:21 Abuse screen: Denies threats or abuse. Denies injuries from another. Nutritional lp1 screening: No deficits noted. Tuberculosis screening: No symptoms or risk factors identified. 22:25 Fall Risk None identified. ak1 Assessment: 22:24 General: Appears uncomfortable, Behavior is calm, cooperative. Pain: Complains of pain ak1 in posterior aspect of left knee and left knee. Neuro: No deficits noted. Cardiovascular: No deficits noted. Respiratory: No deficits noted. GI: No signs and/or symptoms were reported involving the gastrointestinal system. : No signs and/or symptoms were reported regarding the genitourinary system. EENT: No signs and/or symptoms were reported regarding the EENT system. Derm: Skin is intact, is healthy with good turgor, Skin is dry, Skin is pink, warm \T\ dry. Skin temperature is warm. Musculoskeletal: Range of motion: limited in left knee pt c/o pain in left knee. 23:11 Reassessment: Patient appears in no apparent distress at this time. Patient and/or ak1 family updated on plan of care and expected duration. Pain level reassessed. Patient is alert, oriented x 3, equal unlabored respirations, skin warm/dry/pink. pt able to put weight on left leg to ambulate to wheelchair. Patient states feeling better. Patient states symptoms have improved. Vital Signs: 21:20 BP 130 / 82; Pulse 91; Resp 18; Pulse Ox 97% on R/A; Weight 72.57 kg; Height 4 ft. 9 lp1 in. (144.78 cm); Pain 10/10; 22:25 BP 149 / 78; Pulse 93; Resp 20; Temp 98.1; Pulse Ox 99% on R/A; Pain 10/10; ak1 21:20 Body Mass Index 34.62 (72.57 kg, 144.78 cm) lp1 ED Course: 21:05 Patient arrived in ED. es 21:06 Kvng Harris MD is Private Physician. es 21:20 Triage completed. lp1 21:20 Arm band placed on right wrist. lp1 22:16 Raghu Amaya PA is PHCP. [facility] 22:16 Akbar Blackburn MD is Attending Physician. jmm 22:19 Nallely Burgess, RN is Primary Nurse. ak1 22:26 Patient has correct armband on for positive identification. Bed in low position. Call ak1 light in reach. Side rails up X2. Adult w/ patient. Pulse ox on. NIBP on. Door closed. Warm blanket given. Head of bed elevated. 22:48 Jason Rea MD is Referral Physician. jmm 22:49 US Extremity Venous Unilateral Ltd In Process Unspecified. EDMS 23:03 Patient did not have IV access during this emergency room visit. ak1 23:09 No provider procedures requiring assistance completed. ak1 Administered Medications: 22:36 Drug: morphine 4 mg Route: IM; Site: left gluteus; ak1 23:03 Follow up: Response: No adverse reaction ak1 22:36 Drug: Zofran 4 mg Route: PO; ak1 22:37 Follow up: Response: No adverse reaction ak1 Outcome: 22:48 Discharge ordered by . dru 23:10 Discharged to home via wheelchair. ak1 23:10 Condition: good 23:10 Discharge instructions given to patient, family, Instructed on discharge instructions, follow up and referral plans. no drinking with medication, no driving heavy equipment, medication usage, Demonstrated understanding of instructions, follow-up care, medications, Prescriptions given X 1. 23:11 Patient left the ED. ak1 Signatures: Dispatcher [employer] EDID Raghu Amaya PA PA jmm Salyer, Edna es Pena, Laura RN RN lp1 Nallely Burgess RN RN ak1
--- NOTE | 2019-04-01 08:09 | RAD REPORT ---
EXAM DESCRIPTION: US - Extremity Venous Uni Ltd - 03/31/2019 11:04 pm CLINICAL HISTORY: pain, swelling Leg swelling and edema. COMPARISON: No comparisons FINDINGS: Left lower extremity venous system was interrogated with Doppler technique. Normal flow, c ompressibility and augmentation was noted. There is no DVT present.No Keyes's cyst identified. IMPRESSION: No evidence of left lower extremity deep venous thrombosis.
== END 2019-03-31 23:11 | disposition home or self-care (01) ==
LOC: ER 20:59
DX: M71.22 Synovial cyst of popliteal space [Baker], left knee (principal); J45.909 Unspecified asthma, uncomplicated; Z88.0 Allergy status to penicillin; Z72.0 Tobacco use
CPT/HCPCS: 93971; 96372; 99284

== ENCOUNTER 2019-04-04 11:55 | Observation (INO) | payer OTHER ==
--- OUTSIDE RECORDS SUMMARY | 2019-04-04 11:58 | XMS REPORT | Continuity of Care Document ---
[...] Type Number For Provider Date Date Visit [facility] Outpt Diag [id number] Bree 04/24 04/25 [facility] Procedures Procedure Code Date Perfomer Comments Source
[2019-04-04] MEDS ORDERED: KETOROLAC 30 MG/ML INJ ONE (12:48)
[2019-04-04] MEDS ORDERED: HYDROCODONE/APAP 5/325 MG TAB ONE (12:49)
[2019-04-04 12:58] LABS: Absolute Lymphocytes (CBC) 1.5 K/uL (0.7-4.9); Basophils % 1.2 % (0-1.3); Eosinophils % 6.2 % (0-4.4); Lymphocytes % 17.7 % (15.3-44.8); MPV 9.1 fL (7.6-11.3); Monocytes % 11.7 % (3.3-12.3); RBC Red Blood Cell Count 5.02 M/uL (3.86-4.86)
[2019-04-04 13:16] LABS: Albumin 3.2 g/dL (3.4-5.0); Bilirubin Total 0.4 mg/dL (0.2-1.0); Potassium 3.9 mmol/L (3.5-5.1); Protein, Total 8.3 g/dL (6.4-8.2)
--- NOTE | 2019-04-04 14:18 | RAD REPORT ---
EXAM DESCRIPTION: RAD - Knee Left 3 View - 04/04/2019 1:06 pm CLINICAL HISTORY: Knee pain COMPARISON: None. FINDINGS: No fracture, dislocation or periosteal reaction.Small joint effusion is present. Spurs are seen along the inferior margin of the patella. Small medial and lateral compartment marginal spurrin g present. No joint space narrowing. Soft tissues around the knee are mildly edematous. No foreign oral dy. IMPRESSION: Degenerative change as detailed. No acute bone finding. Small joint effusion.
[2019-04-04] MEDS ORDERED: FENTANYL CITR 100 MCG/2 ML ONE (14:39)
[2019-04-04] MEDS ORDERED: VANCOMYCIN 1.25 GM in NA CHLORIDE 0.9% 250 ML IVPB ONE (15:00)
--- NOTE | 2019-04-04 15:02 | EDPHYS ---
Physician Documentation [facility] Name: Jasmine Vazquez Age: 63 yrs Sex: Female : 1955 Arrival Date: 04/04/2019 Time: 11:58 Bed 15 Private MD: ED Physician Shaheen Peterson HPI: 04/04 12:19 This 63 yrs old Female presents to ER via Wheelchair with complaints of Knee jmm swelling. 13:03 The patient presents with pain, swelling. Onset: The symptoms/episode began/occurred jmm gradually, 4 day(s) ago. Modifying factors: The symptoms are alleviated by nothing. the symptoms are aggravated by movement, weight bearing. This is a 63 year old female with a history of asthma that presents to the ED with complaints of ongoing left knee pain. Patient was diagnosed with a bakers cyst. Patient continues to have pain and now states having redness to the area. . Historical: - Allergies: 12:01 PENICILLINS; la1 - Home Meds: 17:05 Advair Diskus Inhl [Active]; Stiolto Respimat inhalation [Active]; Ventolin em Rotahaler/Rotacaps Inhl [Active]; - PMHx: 12:01 Asthma; titanium in neck; la1 - PSHx: 17:05 Hysterectomy; em - Immunization history:: Adult Immunizations up to date. - Social history:: Smoking status: Patient/guardian denies using tobacco. - Ebola Screening: : No symptoms or risks identified at this time. ROS: 13:03 Constitutional: Negative for fever, chills, and weight loss, Cardiovascular: Negative jmm for chest pain, palpitations, and edema, Respiratory: Negative for shortness of breath, cough, wheezing, and pleuritic chest pain. 13:03 MS/extremity: Positive for erythema, pain, swelling. 13:03 All other systems are negative. Exam: 13:03 Constitutional: This is a well developed, well nourished patient who is awake, alert, jmm and in no acute distress. Head/Face: atraumatic. Eyes: EOMI, no conjunctival erythema appreciated ENT: Moist Mucus Membranes Neck: Trachea midline, Supple Chest/axilla: Normal chest wall appearance and motion. Cardiovascular: Regular rate and rhythm. No edema appreciated Respiratory: Normal respirations, no respiratory distress appreciated Abdomen/GI: Non distended, soft Back: Normal ROM 13:03 Musculoskeletal/extremity: erythema noted to the left knee, pain is elicited on ROM, full distal dorsalis pulse, compartments are soft, NVI. 13:03 Skin: erythema noted to the left knee. 13:03 Neuro: Orientation: is normal, Mentation: is normal, Memory: is normal. 13:03 Psych: Behavior/mood is pleasant, cooperative, anxious. Vital Signs: 12:01 Weight 72.12 kg; Height 4 ft. 9 in. (144.78 cm); la1 12:02 Pulse 90; Resp 16; Temp 98.4; Pulse Ox 96% on R/A; la1 12:03 BP 115 / 64; la1 14:00 BP 110 / 62; Pulse 81; Resp 16; Pulse Ox 98% on R/A; em 15:32 BP 107 / 77; Pulse 75; Resp 18; Pulse Ox 97% on R/A; Pain 7/10; em 17:06 BP 111 / 74; Pulse 86; Resp 18; Temp 98.6(O); Pulse Ox 99% on R/A; em 12:01 Body Mass Index 34.41 (72.12 kg, 144.78 cm) la1 MDM: 12:19 Patient medically screened. [facility] 14:57 Data reviewed: vital signs, nurses notes. Counseling: I had a detailed discussion with dru the patient and/or guardian regarding: the historical points, exam findings, and any diagnostic results supporting the discharge/admit diagnosis, lab results. ED course: I discussed the patient with Dr. Lane whom accepted admission. Patient admitted for observation due to circumferential swelling of the extremity. Dr. Peterson visited with the patient at bedside and agree the plan of care. . 04/04 12:36 Order name: CBC with Diff; Complete Time: 13:07 [facility] 04/04 12:36 Order name: CMP; Complete Time: 13:41 [facility] 04/04 12:31 Order name: Knee Left 3 View XRAY; Complete Time: 14:23 [facility] 04/04 12:37 Order name: US Extremity Venous Unilateral Ltd; Complete Time: 15:48 [facility] 04/04 13:07 Order name: Uric Acid; Complete Time: 13:41 [facility] 04/04 12:36 Order name: Saline Lock; Complete Time: 12:57 [facility] Administered Medications: 12:53 Drug: [place] 5 mg-325 mg 1 tabs Route: PO; aj 14:34 Follow up: Response: No adverse reaction; Pain is unchanged, physician notified em 12:54 CANCELLED (Physician Discretion): Ketorolac 30 mg IM once aj 12:55 Drug: Ketorolac 30 mg Route: IVP; Site: right antecubital; aj 14:35 Follow up: Response: No adverse reaction; Pain is unchanged, physician notified em 14:30 Drug: fentaNYL (PF) 50 mcg Route: IVP; Site: right antecubital; iw 17:20 Follow up: Response: No adverse reaction; Pain is decreased em 15:32 Drug: vancoMYCIN 1 grams Route: IVPB; Infused Over: 2 hrs; Site: right antecubital; em 17:20 Follow up: Response: No adverse reaction; IV Status: Completed infusion; IV Intake: em 250ml 17:20 Drug: LevaQUIN 500 mg Volume: 100 ml; Route: IVPB; Infused Over: 60 mins; Site: right em antecubital; 17:21 Follow up: IV Status: Infusion continued upon admission em Disposition: 04/04/19 15:01 Hospitalization ordered by Nikko Lane for Observation. Preliminary diagnosis is Cellulitis of the left leg. - Bed requested for Telemetry/MedSurg (observation). - Status is Observation. em - Condition is Stable. - Problem is new. - Symptoms are unchanged. UTI on Admission? No Addendum: 04/06/2019 09:42 Co-signature as Attending Physician, Shaheen Peterson MD I agree with the assessment and c timmons plan of care. Signatures: Dispatcher [employer] EDYesi Duarte RN Shavon Sandoval RN RN aj Anderson, Corey, MD MD cha Mickail, Joel, PA PA [facility] Mike Zhu, POWER SYSTEM DISPATCHER POWER SYSTEM DISPATCHER em Khloe Good RN RN iw Attema, Lee RN RN la1 Corrections: (The following items were deleted from the chart) 04/04 12:54 12:32 Ketorolac 30 mg IM once ordered. lexii aj 14:59 14:57 ED course: I discussed the patient with Dr. Lane whom accepted admission. . [facility] 16:47 15:01 Hospitalization Ordered by Nikko Lane MD for Observation. Preliminary diagnosis dw is Cellulitis of the left leg. Bed requested for Telemetry/MedSurg (observation). Status is Observation. Condition is Stable. Problem is new. Symptoms are unchanged. UTI on Admission? No. jmm 17:32 16:47 04/04/2019 15:01 Hospitalization Ordered by Nikko Lane MD for Observation. em Preliminary diagnosis is Cellulitis of the left leg. Bed requested for Telemetry/MedSurg (observation). Status is Observation. Condition is Stable. Problem is new. Symptoms are unchanged. UTI on Admission? No. dw
--- NOTE | 2019-04-04 15:02 | ER ---
Nurse's Notes [facility] Name: Jasmine Vazquez Age: 63 yrs Sex: Female : 1955 Arrival Date: 04/04/2019 Time: 11:58 Bed 15 Private MD: Diagnosis: Cellulitis of the left leg Presentation: 04/04 11:59 Presenting complaint: Mother states: Son states She was seen here earlier this week and la1 has a cyst behind her knee. She has not been able to get an apt with her ortho and she ran out of her pain meds. We need to get it fixed, drained, whatever. Transition of care: patient was not received from another setting of care. Onset of symptoms was April 04, 2019. Risk Assessment: Do you want to hurt yourself or someone else? Patient reports no desire to harm self or others. Initial Sepsis Screen: Does the patient meet any 2 criteria? No. Patient's initial sepsis screen is negative. Does the patient have a suspected source of infection? No. Patient's initial sepsis screen is negative. Care prior to arrival: None. 11:59 Method Of Arrival: Wheelchair la1 11:59 Acuity: RAKAN 3 la1 Historical: - Allergies: 12:01 PENICILLINS; la1 - Home Meds: 17:05 Advair Diskus Inhl [Active]; Stiolto Respimat inhalation [Active]; Ventolin em Rotahaler/Rotacaps Inhl [Active]; - PMHx: 12:01 Asthma; titanium in neck; la1 - PSHx: 17:05 Hysterectomy; em - Immunization history:: Adult Immunizations up to date. - Social history:: Smoking status: Patient/guardian denies using tobacco. - Ebola Screening: : No symptoms or risks identified at this time. Screenin:26 Abuse screen: Denies threats or abuse. Denies injuries from another. Nutritional aj screening: No deficits noted. Tuberculosis screening: No symptoms or risk factors identified. Fall Risk None identified. Assessment: 12:26 General: Appears in no apparent distress. uncomfortable, Behavior is calm, cooperative, aj appropriate for age, flat, Patient appears to be under the influence in room. Pinpoint pupils and slurred slow speech. Reports taking pain medication [employer]. Pain: Complains of pain in posterior aspect of left knee, left calf and left Achilles. Neuro: Level of Consciousness is awake, alert, obeys commands, Oriented to person, place, time, situation, Appropriate for age. Respiratory: Airway is patent Respiratory effort is even, unlabored, Respiratory pattern is regular, symmetrical. Derm: Skin is intact, is healthy with good turgor, Skin is pink, warm \T\ dry. normal. 13:40 Reassessment: Patient appears in no apparent distress at this time. reports pain em medication has not worked, provider notified, no new medication orders received, family at bedside. 15:33 Reassessment: Patient appears in no apparent distress at this time. Patient and/or em family updated on plan of care and expected duration. Pain level reassessed. Patient is alert, oriented x 3, equal unlabored respirations, skin warm/dry/pink. eating snacks, family member at bedside Patient states feeling better. 17:06 Reassessment: Patient appears in no apparent distress at this time. Patient and/or em family updated on plan of care and expected duration. Pain level reassessed. Patient is alert, oriented x 3, equal unlabored respirations, skin warm/dry/pink. Patient states feeling better. Vital Signs: 12:01 Weight 72.12 kg; Height 4 ft. 9 in. (144.78 cm); la1 12:02 Pulse 90; Resp 16; Temp 98.4; Pulse Ox 96% on R/A; la1 12:03 BP 115 / 64; la1 14:00 BP 110 / 62; Pulse 81; Resp 16; Pulse Ox 98% on R/A; em 15:32 BP 107 / 77; Pulse 75; Resp 18; Pulse Ox 97% on R/A; Pain 7/10; em 17:06 BP 111 / 74; Pulse 86; Resp 18; Temp 98.6(O); Pulse Ox 99% on R/A; em 12:01 Body Mass Index 34.41 (72.12 kg, 144.78 cm) la1 ED Course: 11:58 Patient arrived in ED. mr 12:01 Triage completed. la1 12:01 Arm band placed on left wrist. la1 12:04 Shavon Bills, MAGI is Primary Nurse. sandra 12:19 Raghu Amaya PA is PHCP. dru 12:19 Shaheen Peterson MD is Attending Physician. jmm 12:26 Patient has correct armband on for positive identification. aj 12:55 Inserted saline lock: 20 gauge in right antecubital area, using aseptic technique. aj Blood collected. 12:56 CBC with Diff Sent. aj 12:56 CMP Sent. aj 13:06 Knee Left 3 View XRAY In Process Unspecified. EDMS 15:[address] MD is Hospitalizing Provider. jmm 15:13 US Extremity Venous Unilateral Ltd In Process Unspecified. EDMS 17:06 Patient admitted, IV remains in place. em 17:06 No provider procedures requiring assistance completed. em Administered Medications: 12:53 Drug: [place] 5 mg-325 mg 1 tabs Route: PO; aj 14:34 Follow up: Response: No adverse reaction; Pain is unchanged, physician notified em 12:54 CANCELLED (Physician Discretion): Ketorolac 30 mg IM once aj 12:55 Drug: Ketorolac 30 mg Route: IVP; Site: right antecubital; aj 14:35 Follow up: Response: No adverse reaction; Pain is unchanged, physician notified em 14:30 Drug: fentaNYL (PF) 50 mcg Route: IVP; Site: right antecubital; iw 17:20 Follow up: Response: No adverse reaction; Pain is decreased em 15:32 Drug: vancoMYCIN 1 grams Route: IVPB; Infused Over: 2 hrs; Site: right antecubital; em 17:20 Follow up: Response: No adverse reaction; IV Status: Completed infusion; IV Intake: em 250ml 17:20 Drug: LevaQUIN 500 mg Volume: 100 ml; Route: IVPB; Infused Over: 60 mins; Site: right em antecubital; 17:21 Follow up: IV Status: Infusion continued upon admission em Intake: 17:20 IV: 250ml; Total: 250ml. em Outcome: 15:01 Decision to Hospitalize by Provider. jmm 17:30 Admitted to Med/surg accompanied by tech, family with patient, via wheelchair, room em 204, with chart, Report called to MAGI Ferguson 17:30 Condition: good 17:30 Instructed on the need for admit, Demonstrated understanding of instructions. 17:32 Patient left the ED. em Signatures: Dispatcher [employer] Shavon Webb RN RN aj Mickail, Joel, PA PA jmm Rivera, Mary mr Zhu, Mike, DIRECTOR LIFE DIRECTOR LIFE em Khloe Good, MAGI RN iw Charles Martinez RN RN la1 Corrections: (The following items were deleted from the chart) 17:31 17:06 BP 111 / 74; Pulse 86bpm; Resp 18bpm; Pulse Ox 99% RA; Temp 96.6F Oral; em em
--- NOTE | 2019-04-04 15:23 | RAD REPORT ---
EXAM DESCRIPTION: US - Extremity Venous Uni Ltd - 04/04/2019 3:13 pm CLINICAL HISTORY: Left leg pain and swelling COMPARISON: None. TECHNIQUE: Real-time sonographic evaluation of the left lower extremity deep venous system was perfo rmed. FINDINGS: Normal compressibility, flow augmentation, phasic flow and spontaneous flow are identified in the left lower extremity common femoral, superficial femoral, popliteal and posterior tibial vein s. No intraluminal filling defects seen. IMPRESSION: No DVT in the left lower extremity.
[2019-04-04] MEDS ORDERED: Levofloxacin500mg IV 500 MG/100 ML BAG IV ONE (15:39)
--- NOTE | 2019-04-04 16:34 | P.HP ---
Certification for Inpatient Patient admitted to: Observation Practitioner: I am a practitioner with admitting privileges, knowledge of patient current condition, hospital course, and medical plan of care. Services: Services provided to patient in accordance with Admission requirements found in Title 42 Section 412.3 of the Code of Federal Regulations Patient History Date of Service: 04/04/19 Reason for admission: left lower extremity cellulitis History of Present Illness: This 63-year-old female past medical history asthma admitted for left lower extremity cellulitis. Per patient, and all started with a bump in the back of her left knee. She was here in the ER 1 week ago, she had a ultrasound done at this time, negative for DVT but diagnosed with Keyes cyst and discharged home. Since then, she has been having progressively worsening left lower extremity swelling and erythema. No alleviating or exacerbating factors. Describes pain as 10/10, extending all the way up to the left hip. Endorses intermittent subjective fevers and chills. Denies any chest pain, shortness of breath, headache, vision changes, GI or complaints. In the ER, initial vital signs were blood pressure 115/64, heart rate of 90, respirations 16 afebrile at 98.4 and 96% on room air. She has a BMI of 34.41. Her labs were fairly unremarkable. She received ketorolac, fentanyl, vancomycin and Zosyn. Repeat ultrasound today negative for acute DVT and knee x -ray was done, negative for any acute abnormalities. At the time of my exam, she was alert oriented x3 and in no acute distress. At the time of my exam, she was alert oriented x3, in no acute distress. She had pinpoint pupils and was slightly slurring her words. He stated that she wanted the pain meds that he came in the ER which really helped. She was referring to fentanyl. Allergies Penicillins Allergy (Verified 11/17/18 04:04) Itching/Hives/Rash Home medications list reviewed: Yes Home Medications: Albuterol Inhaler [Ventolin Inhaler*] 2 - 3 puff IH TID PRN #1 hfa.aer.ad Amitriptyline [Elavil*] 50 mg PO BEDTIME 11/17/18 Fluticasone/Salmeterol [Advair 250-50 Diskus] 1 each IH BID #1 blst.w.dev predniSONE [Prednisone*] 20 mg PO BID #20 tab 11/17/18 - Past Medical/Surgical History Diabetic: No -: Asthma -: Titanium in neck - Family History Father -: Diabetes - Social History Alcohol use: No CD- Drugs: No Caffeine use: No Review of Systems 10-point ROS is otherwise unremarkable Physical Examination - Physical Exam General: Alert, In no apparent distress, Oriented x3 HEENT: Atraumatic, PERRLA, Mucous membr. moist/pink, Other (Pinpoint pupils), EOMI, Sclerae nonicteric Neck: Supple, 2+ carotid pulse no bruit, No LAD, Without JVD or thyroid abnormality Respiratory: Clear to auscultation bilaterally, Normal air movement Cardiovascular: Regular rate/rhythm, Normal S1 S2 Gastrointestinal: Normal bowel sounds, No tenderness Musculoskeletal: No tenderness Integumentary: Tenderness/swelling, Erythema, Warmth (Left lower extremity,), Other (Diffuse erythematous papules located on bilateral soles and palms) Neurological: Normal speech, Normal strength at 5/5 x4 extr, Normal tone, Normal affect Lymphatics: No axilla or inguinal lymphadenopathy - Studies Laboratory Data (last 24 hrs) 04/04/19 12:48: Uric Acid 4.8 04/04/19 12:48: Sodium 138, Potassium 3.9, BUN 18, Creatinine 0.90, Glucose 102 , Total Bilirubin 0.4, AST 15, ALT 16, Alkaline Phosphatase 124 H 04/04/19 12:48: WBC 8.3, Hgb 14.0, Hct 43.0, Plt Count 406 Assessment and Plan - Problems (Diagnosis) (1) Cellulitis Current Visit: Yes Status: Acute Plan: IV antibiotics -IV fluids -monitor for sepsis Qualifiers: Site of cellulitis: extremity Site of cellulitis of extremity: lower extremity Laterality: left Qualified Code(s): L03.116 - Cellulitis of left lower limb (2) Chronic obstructive pulmonary disease Current Visit: No Status: Chronic Plan: Stable. Will continue breathing treatments as needed. Qualifiers: COPD type: unspecified COPD Qualified Code(s): J44.9 - Chronic obstructive pulmonary disease, unspecified (3) Rash and nonspecific skin eruption Current Visit: No Status: Chronic Plan: Probation, rash has been there for a long time, comes and goes. She is not concerned about that at all. - Plan DVT prophylaxis: Encouraged ambulation GI prophylaxis: None Diet: Heart healthy Disposition: Pending symptomatic improvement. Anticipate discharge in the next 24-48 hr - Advance Directives Does patient have a Living Will: No Does patient have a Durable POA for Healthcare: No
[2019-04-04] MEDS ORDERED: ONDANSETRON 4 MG/2 ML VIAL IV PRN (17:16)
[2019-04-04] MEDS ORDERED: VANCOMYCIN/NS 1 gm 1 GM/250 ML BAG IVPB SCH (17:16)
[2019-04-04 18:16] VITALS: BMI 34.4
[2019-04-04] MEDS: NA CHLORIDE 0.9% 1,000 ML IV SCH (18:38)
[2019-04-04 19:40] LABS: Urine Appearance CLOUDY; Urine Blood 2+ (NEG); Urine Color DK YELLOW; Urine Glucose NEGATIVE (NEG); Urine Protein TRACE (NEG); Urine Specific Gravity 1.025 (1.005-1.030)
[2019-04-04 20:07] LABS: Urine Bilirubin NEGATIVE (NEG); Urine Microscopic Reflex ORDER UMIC
[2019-04-04] MEDS: MORPHINE 2 MG/ML SYR IV PRN ×2 (20:07→23:29)
[2019-04-04 20:24] LABS: Calcium Oxalate Crystals- Ur FEW (NONE SEEN); Urine Bacteria >50 /HPF (<20); Urine Culture Reflex Order REFLEXED
[2019-04-05] MEDS: NA CHLORIDE 0.9% 1,000 ML IV SCH ×2 (04:47→23:43)
[2019-04-05] MEDS: MORPHINE 2 MG/ML SYR IV PRN (04:47)
[2019-04-05 05:41] LABS: Absolute Lymphocytes (CBC) 1.5 K/uL (0.7-4.9); Basophils % 2.3 % (0-1.3); Eosinophils % 7.3 % (0-4.4); Hematocrit 37.3 % (36.0-45.0); MPV 8.8 fL (7.6-11.3); Monocytes % 9.6 % (3.3-12.3); RBC Red Blood Cell Count 4.33 M/uL (3.86-4.86)
[2019-04-05 05:53] LABS: Potassium 4.2 mmol/L (3.5-5.1)
[2019-04-05] MEDS: HYDROCODONE/APAP 10/325 TAB PO PRN ×3 (08:49→23:43)
[2019-04-05 09:18] VITALS: O2SAT 97
--- NOTE | 2019-04-05 10:09 | P.PN ---
Subjective Date of Service: 04/05/19 Chief Complaint: left lower extremity cellulitis Patient seen and examined at bedside. No family at bedside. Chart reviewed and case discussed with nursing staff. Cellulitis improving, almost resolved. Patient now complaining of left lower back pain and complains of unable to walk. States she needs pain medicine to help. Refuses to work with physical therapy at this time because she is in pain Review of Systems 10-point ROS is otherwise unremarkable Physical Examination - Vital Signs Temperature: 97.5 F Blood Pressure: 114/74 Pulse: 84 Respirations: 16 Pulse Ox (%): 97 - Physical Exam General: Alert, Oriented x3, Mild distress, Moderate distress HEENT: Atraumatic, PERRLA, EOMI Neck: Supple, JVD not distended Respiratory: Clear to auscultation bilaterally, Normal air movement Cardiovascular: Regular rate/rhythm, Normal S1 S2 Gastrointestinal: Normal bowel sounds, No tenderness Musculoskeletal: No swelling, No contractures, No erythema, No tenderness, No warmth, Other (No point tenderness on spine) Integumentary: No rashes Neurological: Normal speech, Normal tone, Normal affect - Studies Laboratory Data (last 24 hrs) 04/04/19 12:48: Uric Acid 4.8 04/04/19 12:48: Sodium 138, Potassium 3.9, BUN 18, Creatinine 0.90, Glucose 102 , Total Bilirubin 0.4, AST 15, ALT 16, Alkaline Phosphatase 124 H 04/04/19 12:48: WBC 8.3, Hgb 14.0, Hct 43.0, Plt Count 406 Assessment And Plan - Current Problems (Diagnosis) (1) Cellulitis Current Visit: Yes Status: Acute Plan: Improving. Continue IV antibiotics -IV fluids -monitor for sepsis Qualifiers: Site of cellulitis: extremity Site of cellulitis of extremity: lower extremity Laterality: left Qualified Code(s): L03.116 - Cellulitis of left lower limb (2) Chronic obstructive pulmonary disease Current Visit: No Status: Chronic Plan: Stable. Will continue breathing treatments as needed. Qualifiers: COPD type: unspecified COPD Qualified Code(s): J44.9 - Chronic obstructive pulmonary disease, unspecified (3) Rash and nonspecific skin eruption Current Visit: No Status: Chronic Plan: Probation, rash has been there for a long time, comes and goes. She is not concerned about that at all. (4) Lower back pain Current Visit: Yes Status: Acute Plan: Patient with lower back pain, that started recently per patient. Will get lower back x-ray. Lidocaine patch to the area for symptomatic relief. Discontinue IV morphine as patient's pain seems to be out of proportion from exam. Encouraged patient work with physical therapy as this will help long-term. Physical therapy ordered. Qualifiers: Chronicity: acute Back pain laterality: left Sciatica presence: without sciatica Qualified Code(s): M54.5 - Low back pain - Plan DVT prophylaxis: Encouraged ambulation GI prophylaxis: None Diet: Heart healthy Disposition: Pending symptomatic improvement, physical therapy and x-ray results. Anticipate discharge in the next 24 hr
[2019-04-05] MEDS: LIDOCAINE 5% PATCH TOP SCH (10:24)
--- NOTE | 2019-04-05 11:02 | RAD REPORT ---
EXAM DESCRIPTION: RAD - Lumbar Spine 3 Views - 04/05/2019 10:09 am CLINICAL HISTORY: Back pain, left lower extremity radiculopathy COMPARISON: None. FINDINGS: A three-view lumbar spine examination was performed. Lumbar bodies are normal in height. N o compression fractures seen. No lytic, sclerotic or expansile destructive process. A very subtle lef t convex curvature is seen across the lumbar spine. L4 anterior subluxation of approximately 7 mm not ed. Significant facet degenerative changes present at L4-5. Slight narrowing of the L4-5 disc space n oted. L3-4 and L5-S1 facet joint degenerative changes are present. No pars defects identified. IMPRESSION: No fracture or acute lumbar spine finding. Significant anterior subluxation of L4 due to facet degenerative change likely results in significant central spinal stenosis. Follow-up MR imaging could be performed to better assess for spinal stenosis or foraminal stenosis.
[2019-04-05] MEDS ORDERED: Levofloxacin500mg IV 500 MG/100 ML BAG IV SCH (17:00)
[2019-04-05] MEDS ORDERED: VANCOMYCIN 1.25 GM in NA CHLORIDE 0.9% 250 ML IVPB SCH (17:00)
[2019-04-06] MEDS: HYDROCODONE/APAP 10/325 TAB PO PRN (05:07)
[2019-04-06] MEDS: LIDOCAINE 5% PATCH TOP SCH (08:43)
[2019-04-06] MEDS ORDERED: MORPHINE 2 MG/ML SYR IV ONE (09:49)
[2019-04-06] MEDS ORDERED: MORPHINE 4 MG/ML SYR IV ONE (09:52)
--- NOTE | 2019-04-06 10:34 | P.SSS ---
Patient History Date of Service: 04/06/19 Primary Care Provider: CAR Perdomo Reason for admission: left lower extremity cellulitis History of Present Illness: This 63-year-old female past medical history asthma admitted for left lower extremity cellulitis. Per patient, and all started with a bump in the back of her left knee. She was here in the ER 1 week ago, she had a ultrasound done at this time, negative for DVT but diagnosed with Keyes cyst and discharged home. Since then, she has been having progressively worsening left lower extremity swelling and erythema. No alleviating or exacerbating factors. Describes pain as 10/10, extending all the way up to the left hip. Endorses intermittent subjective fevers and chills. Denies any chest pain, shortness of breath, headache, vision changes, GI or complaints. In the ER, initial vital signs were blood pressure 115/64, heart rate of 90, respirations 16 afebrile at 98.4 and 96% on room air. She has a BMI of 34.41. Her labs were fairly unremarkable. She received ketorolac, fentanyl, vancomycin and Zosyn. Repeat ultrasound today negative for acute DVT and knee x -ray was done, negative for any acute abnormalities. At the time of my exam, she was alert oriented x3 and in no acute distress. At the time of my exam, she was alert oriented x3, in no acute distress. She had pinpoint pupils and was slightly slurring her words. He stated that she wanted the pain meds that he came in the ER which really helped. She was referring to fentanyl. 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 moist/pink, EOMI, Sclerae nonicteric Neck: Supple, 2+ carotid pulse no bruit, No LAD, Without JVD or thyroid abnormality Respiratory: Clear to auscultation bilaterally, Normal air movement Cardiovascular: Regular rate/rhythm, Normal S1 S2 Gastrointestinal: Normal bowel sounds, No tenderness Musculoskeletal: No tenderness Integumentary: No rashes Neurological: Normal gait, Normal speech, Normal strength at 5/5 x4 extr, Normal tone, Normal affect Lymphatics: No axilla or inguinal lymphadenopathy - Diagnosis (Problem(s)) (1) Cellulitis Current Visit: Yes Status: Resolved Qualifiers: Site of cellulitis: extremity Site of cellulitis of extremity: lower extremity Laterality: left Qualified Code(s): L03.116 - Cellulitis of left lower limb (2) Chronic obstructive pulmonary disease Current Visit: No Status: Chronic Qualifiers: COPD type: unspecified COPD Qualified Code(s): J44.9 - Chronic obstructive pulmonary disease, unspecified (3) Rash and nonspecific skin eruption Current Visit: No Status: Chronic (4) Lower back pain Current Visit: Yes Status: Chronic Qualifiers: Chronicity: chronic Back pain laterality: left Sciatica presence: without sciatica Qualified Code(s): M54.5 - Low back pain; G89.29 - Other chronic pain (5) Asymptomatic bacteriuria Current Visit: Yes Status: Acute Treatment Summary: Patient was admitted for cellulitis, She was started on IV antibiotics and IVF. Her symptoms of cellulitis improved. She complained greatly about lower back pain, that has been chronic. Initially, patient lied and stated that this pain was new during this admission, when re-asked after chart review, patient stated that she has had this pain for years. Lumbar x-ray was with chronic changes including stenosis. Patient did work with Physical therapy here. PT recommends HH. SW was consulted and HH w/ PT was set up. She received pain medications here. As her pain was out of proportion to her exam, IV pain medications were discontinued and she was provided with PO pain medications. She did display some drug seeking behaviour as she was rude with staff if she did not recieve her pain medications. She was educated on pain medications. It was strongly recommended that she continue working with PT at home w/ HH along with a follow up with a pain management physician. SW assisted in calling pain management to help set up an appointment for her. . Her urine studies were also growing Gram negative rods but she did not exhibit any symptoms. Regardless, her PO levaquin for cellulitis on discharge should help treat this as well. She otherwise remained hemodynamically stable throughout the stay. Her treatment plan and diagnosis was explained to her and all questions were answered. She and her daughter verbalized understanding. She was then discharged home in a safe and stable manner. - Disposition Discharge Date: 04/06/19 Disposition: ROUTINE DISCHARGE Condition: GOOD Patient Discharge Instructions: Please follow up with your primary care physician in 2-3 days. Please follow up with Pain management physician as we discussed. New Medication: Levaquin 500 mg once a day x 5 days. Time Spent Managing Pts Care (In Minutes): 55
[2019-04-06 12:26] VITALS: BP 134/84; TEMP 98.6
== END 2019-04-06 11:45 | disposition home health service (06) ==
LOC: ER 11:55 → ERHOLD 15:23 → 2ND 17:16
PROVIDERS: ADMIT Family Medicine; ATTEND Family Medicine
DX: L03.116 Cellulitis of left lower limb (principal); J44.9 Chronic obstructive pulmonary disease, unspecified; M54.5 Low back pain; G89.29 Other chronic pain; R21 Rash and other nonspecific skin eruption; R82.71 Bacteriuria; M48.061 Spinal stenosis, lumbar region without neurogenic claudication; M53.86 Other specified dorsopathies, lumbar region; M25.462 Effusion, left knee; F17.200 Nicotine dependence, unspecified, uncomplicated; Z79.51 Long term (current) use of inhaled steroids; Z79.52 Long term (current) use of systemic steroids; Z79.899 Other long term (current) drug therapy
CPT/HCPCS: 96365; 87088; 85025 ×2; 87086; 80048; 36415; 84550; 87077; 87186; 80053; 72100; 73562; 93971; 97116; 97163; 97530; 96375; 99285; 96366; J3010; J2270 ×3; J7030 ×4; G0378 ×2; 81003; 81015

== ENCOUNTER 2019-07-21 11:03 | Emergency (ER) | payer OTHER ==
[2019-07-21] MEDS ORDERED: ONDANSETRON 4 MG (ODT) TAB ONE (11:43)
[2019-07-21] MEDS ORDERED: METHYLPREDNISOLONE 125 MG INJ ONE (11:43)
[2019-07-21] MEDS ORDERED: DIAZEPAM 5 MG TABLET ONE (11:43)
[2019-07-21] MEDS ORDERED: MORPHINE 4 MG/ML SYR ONE ×2 (11:58→12:49)
--- NOTE | 2019-07-21 12:13 | RAD REPORT ---
EXAM DESCRIPTION: CT - Spine Lumbar Wo Con - 07/21/2019 11:51 am CLINICAL HISTORY: Back pain, left hip and left lower extremity pain COMPARISON: None. TECHNIQUE: Thin section axial imaging of the lumbar spine was performed. Sagittal and coronal recon struction images were generated and reviewed. All CT scans are performed using dose optimization technique as appropriate and may include automated exposure control or mA/KV adjustment according to patient size. FINDINGS: Lumbar bodies are normal in height. No compression fracture present. No lytic, sclerotic o r expansile bony destructive process seen. There is anterior subluxation of L4 on L5 of approximately 6 mm. Advanced facet degenerative change present at this level. No pars defects. Patient has a very minimal left convex curvature of the lumbar spine. Alignment is otherwise unremarkable. No paraspinal soft tissue mass. The T12-L1 and L1-2 disc levels show no suspicious or significant finding. L2-3 shows slight loss in disc height. Minimal disc bulge changes are present. No canal or foramen st enosis. L3-4 disc levels show slight loss in height. Mild disc bulge present with no canal or foramen stenosi s. Facet degenerative changes are present. L4-5 shows loss in disc height. There is degenerative gas in the disc space. L4 subluxation creates a prominent pseudo bulging of disc material across the central canal. The advanced facet degenerative changes result in central spinal stenosis to 8 mm. Bilateral foraminal stenosis changes are present s ignificant in degree. L5-S1 level shows no significant finding. No canal or foramen stenosis. IMPRESSION: Advanced degenerative change at L4-5 as detailed above. Central spinal stenosis and sign ificant bilateral foraminal stenosis are present. These changes could explain low back pain and radic ulopathy of either lower extremity. Minimal degenerative disc disease at L2-3 and L3-4. No compression fracture or pathologic bone process.
--- NOTE | 2019-07-21 12:18 | ER ---
Nurse's Notes [facility] Name: Jasmine Vazquez Age: 63 yrs Sex: Female : 1955 Arrival Date: 07/21/2019 Time: 11:12 Bed 7 Private MD: Kvng Harris E Diagnosis: Low back pain Presentation: 07/21 11:18 Presenting complaint: Patient states: Left hip pain since saturday. Transition of care: la1 patient was not received from another setting of care. Onset of symptoms was July 21, 2019. Risk Assessment: Do you want to hurt yourself or someone else? Patient reports no desire to harm self or others. Initial Sepsis Screen: Does the patient meet any 2 criteria? No. Patient's initial sepsis screen is negative. Does the patient have a suspected source of infection? No. Patient's initial sepsis screen is negative. Care prior to arrival: None. 11:18 Method Of Arrival: Ambulatory la1 11:18 Acuity: RAKAN 4 la1 Historical: - Allergies: 11:18 PENICILLINS; la1 - PMHx: 11:18 Asthma; titanium in neck; la1 - Immunization history:: Adult Immunizations up to date. - Social history:: Smoking status: Patient/guardian denies using tobacco, Patient/guardian denies using alcohol, street drugs, The patient lives with family. - Ebola Screening: : No symptoms or risks identified at this time. - Family history:: not pertinent. Screenin:23 Abuse screen: Denies threats or abuse. Denies injuries from another. Nutritional sv screening: No deficits noted. Tuberculosis screening: No symptoms or risk factors identified. Fall Risk None identified. Assessment: 11:45 General: Appears in no apparent distress. uncomfortable, Behavior is calm, cooperative, jl7 appropriate for age. Pain: Complains of pain in left hip Pain currently is 10 out of 10 on a pain scale. Quality of pain is described as aching, Pain began 2-3 days ago. Is continuous. Neuro: Level of Consciousness is awake, alert, obeys commands, Oriented to person, place, time, situation. Cardiovascular: Patient's skin is warm and dry. Respiratory: Airway is patent Respiratory effort is even, unlabored, Respiratory pattern is regular, symmetrical. Derm: Skin is pink, warm \T\ dry. Musculoskeletal: Range of motion: intact in all extremities. 12:00 Reassessment: Pt called daughter to pick her up. jl7 12:50 Reassessment: Patient appears in no apparent distress at this time. Patient and/or jl7 family updated on plan of care and expected duration. Pain level reassessed. Patient is alert, oriented x 3, equal unlabored respirations, skin warm/dry/pink. Patient states symptoms have not improved. 12:55 Reassessment: Daughter here to transport pt. jl7 Vital Signs: 11:18 BP 106 / 72; Pulse 78; Resp 16; Temp 97.4; Pulse Ox 100% on R/A; Weight 67.59 kg; la1 Height 4 ft. 9 in. (144.78 cm); 12:00 BP 109 / 74; Pulse 72; Resp 16; Pulse Ox 100% ; Pain 10/10; jl7 12:50 BP 103 / 74; Pulse 73; Resp 16 S; Pulse Ox 100% on R/A; Pain 9/10; jl7 11:18 Body Mass Index 32.24 (67.59 kg, 144.78 cm) la1 ED Course: 11:12 Patient arrived in ED. mr 11:12 Kvng Harris MD is Private Physician. mr 11:18 Triage completed. la1 11:19 Arm band placed on left wrist. la1 11:20 Maryam Salinas MD is Attending Physician. ma2 11:22 Robby Mcelroy RN is Primary Nurse. jl7 11:23 Patient has correct armband on for positive identification. Bed in low position. Call sv light in reach. Door closed. Head of bed elevated. 11:48 Spine Lumbar Wo Con CT In Process Unspecified. EDMS 11:[address] In Process Unspecified. EDMS Administered Medications: 11:38 CANCELLED (po): Valium 5 mg IM once ma2 12:08 Drug: morphine 4 mg Route: IM; Site: left deltoid; jl7 12:50 Follow up: Response: No adverse reaction; Pain is unchanged, physician notified jl7 12:08 Drug: Zofran 4 mg Route: PO; jl7 12:58 Follow up: Response: No adverse reaction jl7 12:08 Drug: MethylPREDNISolone Sodium Succinate 125 mg Route: IM; Site: left ventrogluteal; jl7 12:50 Follow up: Response: No adverse reaction; Pain is unchanged, physician notified jl7 12:40 Drug: Valium 5 mg Route: PO; jl7 12:59 Follow up: Response: No adverse reaction jl7 12:52 Drug: morphine 4 mg Route: IM; Site: right deltoid; jl7 12:59 Follow up: Response: Medication administered at discharge. jl7 Outcome: 12:18 Discharge ordered by MD. garcia 13:00 Patient left the ED. jl7 Signatures: Dispatcher [employer] EDVidya Sorensen, RN MAGI Shawn Pilar Charles Alejo RN RN Robby Culver RN RN jl7 Maryam Salinas MD MD ma2
--- NOTE | 2019-07-21 12:19 | EDPHYS ---
Physician Documentation [facility] Name: Jasmine Vazquez Age: 63 yrs Sex: Female : 1955 Arrival Date: 07/21/2019 Time: 11:12 Bed 7 Private MD: Kvng Harris E ED Physician Maryam Salinas HPI: 07/21 12:16 This 63 yrs old Female presents to ER via Ambulatory with complaints of Hip ma2 Pain. 12:16 The patient or guardian reports decreased range of motion, pain. The complaints affect ma2 the back. Onset: The symptoms/episode began/occurred gradually, 1 week(s) ago. Associated signs and symptoms: Pertinent negatives: abdominal pain, altered mental status, anorexia, chest pain, diarrhea, dizziness, dysuria, fever, headache, incontinence, nausea, shortness of breath, vomiting, weakness. Severity of symptoms: At their worst the symptoms were mild, in the emergency department the symptoms are unchanged. The patient has not experienced similar symptoms in the past. Historical: - Allergies: 11:18 PENICILLINS; la1 - PMHx: 11:18 Asthma; titanium in neck; la1 - Immunization history:: Adult Immunizations up to date. - Social history:: Smoking status: Patient/guardian denies using tobacco, Patient/guardian denies using alcohol, street drugs, The patient lives with family. - Ebola Screening: : No symptoms or risks identified at this time. - Family history:: not pertinent. ROS: 12:16 Constitutional: Negative for fever, chills, and weight loss. ma2 12:16 All other systems are negative. Exam: 12:16 Constitutional: This is a well developed, well nourished patient who is awake, alert, ma2 and in no acute distress. Head/Face: Normocephalic, atraumatic. Eyes: Pupils equal round and reactive to light, extra-ocular motions intact. Lids and lashes normal. Conjunctiva and sclera are non-icteric and not injected. Cornea within normal limits. Periorbital areas with no swelling, redness, or edema. ENT: Nares patent. No nasal discharge, no septal abnormalities noted. Tympanic membranes are normal and external auditory canals are clear. Oropharynx with no redness, swelling, or masses, exudates, or evidence of obstruction, uvula midline. Mucous membranes moist. Neck: Trachea midline, no thyromegaly or masses palpated, and no cervical lymphadenopathy. Supple, full range of motion without nuchal rigidity, or vertebral point tenderness. No Meningismus. Chest/axilla: Normal chest wall appearance and motion. Nontender with no deformity. No lesions are appreciated. Cardiovascular: Regular rate and rhythm with a normal S1 and S2. No gallops, murmurs, or rubs. Normal PMI, no JVD. No pulse deficits. Respiratory: Lungs have equal breath sounds bilaterally, clear to auscultation and percussion. No rales, rhonchi or wheezes noted. No increased work of breathing, no retractions or nasal flaring. Abdomen/GI: Soft, non-tender, with normal bowel sounds. No distension or tympany. No guarding or rebound. No evidence of tenderness throughout. Back: paraspinal muscle ttp, and tension, no midline ttp.. No spinal tenderness. No costovertebral tenderness. Full range of motion. Skin: Warm, dry with normal turgor. Normal color with no rashes, no lesions, and no evidence of cellulitis. MS/ Extremity: Pulses equal, no cyanosis. Neurovascular intact. Full, normal range of motion. Neuro: Awake and alert, GCS 15, oriented to person, place, time, and situation. Cranial nerves II-XII grossly intact. Motor strength 5/5 in all extremities. Sensory grossly intact. Cerebellar exam normal. Normal gait. Vital Signs: 11:18 BP 106 / 72; Pulse 78; Resp 16; Temp 97.4; Pulse Ox 100% on R/A; Weight 67.59 kg; la1 Height 4 ft. 9 in. (144.78 cm); 12:00 BP 109 / 74; Pulse 72; Resp 16; Pulse Ox 100% ; Pain 10/10; jl7 12:50 BP 103 / 74; Pulse 73; Resp 16 S; Pulse Ox 100% on R/A; Pain 9/10; jl7 11:18 Body Mass Index 32.24 (67.59 kg, 144.78 cm) la1 MDM: 11:20 Patient medically screened. ma2 12:16 Differential diagnosis: bursitis, arthritis, strain. Data reviewed: vital signs, nurses ma2 notes. Counseling: I had a detailed discussion with the patient and/or guardian regarding: the historical points, exam findings, and any diagnostic results supporting the discharge/admit diagnosis, the presence of at least one elevated blood pressure reading (>120/80) during this emergency department visit, the need for outpatient follow up. Response to treatment: the patient's symptoms have mildly improved after treatment. 07/21 11:37 Order name: Spine Lumbar Wo Con CT; Complete Time: 12:16 ma2 07/21 11:37 Order name: Pelvis Wo Cont CT ma2 Administered Medications: 11:38 CANCELLED (po): Valium 5 mg IM once ma2 12:08 Drug: morphine 4 mg Route: IM; Site: left deltoid; jl7 12:50 Follow up: Response: No adverse reaction; Pain is unchanged, physician notified jl7 12:08 Drug: Zofran 4 mg Route: PO; jl7 12:58 Follow up: Response: No adverse reaction 7 12:08 Drug: MethylPREDNISolone Sodium Succinate 125 mg Route: IM; Site: left ventrogluteal; jl7 12:50 Follow up: Response: No adverse reaction; Pain is unchanged, physician notified jl7 12:40 Drug: Valium 5 mg Route: PO; jl7 12:59 Follow up: Response: No adverse reaction jl7 12:52 Drug: morphine 4 mg Route: IM; Site: right deltoid; jl7 12:59 Follow up: Response: Medication administered at discharge. jl7 Disposition: 07/21/19 12:18 Discharged to Home. Impression: Low back pain. - Condition is Stable. - Discharge Instructions: Back Pain, Adult. - Prescriptions for Valium 5 mg Oral Tablet - take 1 tablet by ORAL route every 8 hours As needed; 20 tablet. Medrol (Navi) 4 mg Oral Tablets, Dose Pack - take 1 tablet by ORAL route as directed - follow package instructions; 1 packet. Cyclobenzaprine 5 mg Oral Tablet - take 1 tablet by ORAL route 3 times per day As needed; 15 tablet. - Medication Reconciliation Form, Thank You Letter, Antibiotic Education, Prescription Opioid Use form. - Follow up: Private Physician; When: Tomorrow; Reason: Continuance of care. Signatures: Dispatcher [facility] EDWI Charles Martinez RN RN la1 Robby Mcelroy RN RN jl7 Maryam Salinas MD MD ma2 Corrections: (The following items were deleted from the chart) 11:38 11:37 Valium 5 mg IM once ordered. radha garcia 13:00 12:18 07/21/2019 12:18 Discharged to Home. Impression: Low back pain. Condition is jl7 Stable. Prescriptions for Valium 5 mg Oral Tablet - take 1 tablet by ORAL route every 8 hours As needed; 20 tablet, Medrol (Navi) 4 mg Oral Tablets, Dose Pack - take 1 tablet by ORAL route as directed - follow package instructions; 1 packet. and Forms are Medication Reconciliation Form, Thank You Letter, Antibiotic Education, Prescription Opioid Use. Follow up: Private Physician; When: Tomorrow; Reason: Continuance of care. radha
--- NOTE | 2019-07-21 12:21 | RAD REPORT ---
EXAM DESCRIPTION: CT - Pelvis Wo Cont - 07/21/2019 11:48 am CLINICAL HISTORY: left hip pain and sacrum COMPARISON: Shoulder Left 2 View dated 05/18/2019 TECHNIQUE: All CT scans are performed using dose optimization technique as appropriate and may inclu de automated exposure control or mA/KV adjustment according to patient size. FINDINGS: No fracture or subluxation is observed. No aggressive marrow lesion. Both sacral ala appea r intact. Both hip joints appear intact. No pelvic mass, fluid collection or hematoma identified. No muscle enlargement or hematoma suspected. 6 mm degenerative anterolisthesis of L4 on 5 is seen with vacuum disc degeneration. IMPRESSION: No acute process identified.
[2019-07-21 13:24] VITALS: TEMP 97.4; O2SAT 100
[2019-07-21 13:27] VITALS: BP 103/74
== END 2019-07-21 13:00 | disposition home or self-care (01) ==
LOC: ER 11:03
DX: M54.5 Low back pain (principal); Z88.0 Allergy status to penicillin
CPT/HCPCS: 72131; 72192; 96372; 99283; J2930

== ENCOUNTER 2021-01-09 09:04 | Emergency (ER) | payer OTHER ==
--- OUTSIDE RECORDS SUMMARY | 2021-01-09 09:08 | XMS REPORT | Continuity of Care Document ---
:1955 Author Organization [facility] t Address [address] [place] [address] Care Team Providers Name Role Phone ELAYNE Attending Clinician Unavailable Carolyn Marina (Duplicate) Attending Clinician Unavailable Problems Condition Condition Condition Status Onset Resolution Last Treating Co mments Source Name Details Category Date Date Treatment Clinician Date R90.89 - Diagnosis Active 2018-04-24 M emoria OTH 6- 13:27:00 l ABNORMAL R90.89 - 00:01: Herm gerry FINDINGS OTH 00 ON DIAGN ABNORMAL FINDINGS ON DIAGN Active 04/03/2018 [facility] Migraine Migraine Problem Active Unive rs HL7.CCDAR2 [facility] [place] [facility] History of History of Problem Resolve [facility] asthma asthma HL7.CCDAR2 d [facility] [place] [facility] History of History of Problem Resolve [facility] chronic chronic HL7.CCDAR2 d [place] of obstructiv obstructiv [place] lung [place] lung Physici disease disease ans Common Common Problem Active Univers migraine migraine HL7.CCDAR2 it y of without without [place] aura aura Physici ans Intractabl Intractabl Problem Active U nivers e migraine e migraine HL7.CCDAR2 ity of without without [place] aura and aura and Physic i without without ans status status migrainosu migrainosu s s Intermitte Intermitte Problem Active U nivers nt nt HL7.CCDAR2 ity of post[place]traum post[place]traum [place] at[place] atic Physici headache headache ans Abnormal Abnormal Problem Active Unive rs brain MRI brain MRI HL7.CCDAR2 [facility] [place] [facility] Depression Depression Problem Active U nivers HL7.CCDAR2 [facility] [place] [facility] Allergies, Adverse Reactions, Alerts Allergy Allergy Status Severity Reaction(s) Onset Inactive Treating Comm ents Source Name Type Date Date Clinician Penicill drug Active [facility] ins allergy [facility] [place] [facility] Family History Family Member Diagnosis Comments Start Date Stop Date Source Mother Family history of [facility] [place] lung disease Physicians Father Family history of [facility] [place] myocardial infarction Phy sicians Social History Social Habit Start Date Stop Date Quantity Comments Source Social History 2018-04-25 2018-04-25 [facility] 04:59:00 04:59:00 Medications Ordered Filled Start Stop Current Ordering Indication Dosage Frequency Signature Comments Components Source Medication Medication Date Date Medication? Clinician (SIG) Name Name Amitriptyli Amitriptyli Yes ANISHA TAKE 2 [facility] ne HCl - 25 ne HCl - 25 6-20 BROWN M.D. TABLETS AT ity of MG Oral MG Oral 00:00: BEDTIME. Ramiro as Tablet Tablet 00 Physici ans Diclofenac Diclofenac Yes ANISHA TAKE ONE Univers Sodium 50 Sodium 50 3-14 BROWN M.D. TABLET PO ity of MG Oral MG Oral 00:00: DAILY [place]N [place] Tablet Tablet 00 HEADACHE Physici Delayed Delayed ans Release Release Ventolin Ventolin Yes Univers HFA AERS HFA AERS [facility] [place] [facility] Ibuprofen Ibuprofen Yes Unive rs CAPS CAPS [facility] [place] [facility] Vital Signs Vital Name Observation Time Observation Value Comments Source BP Systolic 2018-07-02 150 mm[Hg] Location: [facility] 11:13:00 Position: [place] Physician s Sitting BP Diastolic 2018-07-02 88 mm[Hg] Location: [facility] :13:00 Position: [place] Physician s Sitting Height 2018-07-02 58 [in_us] [facility] :13:00 [place] Physician s Weight 2018-07-02 159 [lb_av] [facility] :13:00 [place] Physician s Body Mass Index 2018-07-02 33.23 kg/m2 University o f Calculated 11:13:00 [place] Physician s Temperature 2018-07-02 98.2 [degF] Method: Oral [facility] :13: [place] Physician s Heart Rate 2018-07-02 65 /min Location: R [facility] 11:13:00 Brachial [place] Physician s Artery; BP Systolic 2018-04-02 122 mm[Hg] [facility] 11:02:[facility] Position: [place] Physician s Sitting BP Diastolic 2018-04-02 85 mm[Hg] [facility]: [facility] 11:02:00 Position: [place] Physician s Sitting Height 2018-04-02 58 [in_us] University 11:02:00 [place] Physician s Weight 2018-04-02 157.375 [lb_av] University o f 11:02:00 [place] Phys[facility] s Body Mass Index 2018-04-02 32.89 kg/m2 University o f Calculated 11:02:00 [place] Physician s Temperature 2018-04-02 97.6 [degF] Method: Oral [facility] 11:02:00 [place] Physician s Heart Rate 2018-04-02 73 /min [facility] 11:02:00 [place] Physician s BP Systolic 2017-12-25 152 mm[Hg] [facility] 11::00 Position: [place] Physician s Sitting BP Diastolic 2017-12-25 86 mm[Hg] Location: [facility]; [facility] 11:01:00 Position: [place] Physician s Sitting Height 2017-12-25 58 [in_us] University 11:01:00 [place] Physician s Weight 2017-12-25 153 [lb_av] [facility] 11:01:00 [place] [facility] s Body Mass Index 2017-12-25 31.98 kg/m2 University o Calculated 11:01:00 [place] Phys[facility] s Temperature 2017-12-25 97.5 [degF] Method: Oral [facility] 11:01:00 [place] Phys[facility] s Heart Rate 2017-12-25 64 /min Location: [facility] 11:01:00 Brachial [place] Physician s Artery; Procedures Procedure Date / Time Performing Clinician Source Performed MRI Brain wo contrast 2018-04-02 00:00:00 [facility] [id number] Physicians History of Hysterectomy [facility] Physicians History of Neck surgery [facility] Physicians Encounters Start End Encounter Admission Attending Care Care Encounter Source Date/Time Date/Time Type Type Clinicians Facility Department ID 2018-07-02 2018-07-02 Appointmen MADHAVI MARINA Neurology [id number] [facility] 11:30:00 11:30:00 t; ANISHA MARINA, vaishali of [place] [facility] 2018-04-24 2018-04-24 Outpatient Flaquita [id number] 13:18:00 23:59:00 Anisha [id number] Carolyn [id number] (Duplicate) 2018-04-02 2018-04-02 Appointmen MADHAVI MARINA Neurology [id number] [facility] 11:30:00 11:30:00 t; ANISHA MARINA [facility] [place], M.D. [place] M.D. Physici ans 2018-03-26 2018-03-26 Appointmen MADHAVI MARINA [facility] [id number] Univers 11:30:00 11:30:00 t; ANISHA MARINA [facility] [place], M.D. [place] M.D. Physici ans 2017-12-25 2017-12-25 Appointmen MADHAVI MARINA Neurology [id number] [facility] 10:30:00 10:30:00 t; ANISHA MARINA [facility] [place], M.D. [place] [facility] Results This patient has no known results.
[2021-01-09] MEDS ORDERED: ASPIRIN 81 MG CHEWABLE TABLET ONE (09:50)
[2021-01-09] MEDS ORDERED: ONDANSETRON 4 MG/2 ML VIAL ONE (09:51)
[2021-01-09] MEDS ORDERED: MORPHINE 4 MG/ML SYR ONE ×3 (09:51→16:12)
[2021-01-09 10:04] LABS: Absolute Lymphocytes (CBC) 1.2 K/uL (0.7-4.9); Basophils % 1.1 % (0-1.3); Hematocrit 40.5 % (36.0-45.0); Lymphocytes % 12.7 % (15.3-44.8); MPV 8.7 fL (7.6-11.3); RBC Red Blood Cell Count 4.79 M/uL (3.86-4.86)
--- NOTE | 2021-01-09 10:09 | RAD REPORT ---
EXAM DESCRIPTION: RAD - Chest Single View - 01/09/2021 9:55 am CLINICAL HISTORY: CHEST PAIN, right-side COMPARISON: May 2020 TECHNIQUE: AP portable chest image was obtained 01/09/2021 9:55 am . FINDINGS: No peripheral mass or consolidation. Scarring or atelectasis changes in each lung base not ed not substantially different from comparison when adjusting for the more shallow inspiration on the current study. No failure or volume overload. Heart and vasculature are normal. No measurable pleural effusion and no pneumothorax. No acute bony abnormality seen. No acute aortic findings suspected. IMPRESSION: No acute cardiopulmonary process. Above detailed findings are not substantially different from the comparison.
[2021-01-09 10:16] LABS: Protime INR 1.03
[2021-01-09 10:24] LABS: ALT/SGPT 31 U/L (12-78); AST/SGOT 26 U/L (15-37); Alkaline Phosphatase 127 U/L (45-117); BUN Blood Urea Nitrogen 13 mg/dL (7-18); Bicarbonate 28 mmol/L (21-32); Bilirubin Direct 0.2 mg/dL (0-0.2); Bilirubin Total 0.7 mg/dL (0.2-1.0); Glucose Level 96 mg/dL (74-106); Magnesium 2.3 mg/dL (1.8-2.4); NT PRO-BNP 263 pg/mL (<125); Potassium 3.9 mmol/L (3.5-5.1); Protein, Total 7.8 g/dL (6.4-8.2); Sodium Level 139 mmol/L (136-145); Troponin (Emerg Dept Use Only) < 0.02 ng/mL (0.0-0.045)
[2021-01-09] MEDS ORDERED: DIAZEPAM 10 MG/2 ML INJ SYRINGE ONE (11:57)
--- NOTE | 2021-01-09 15:58 | ER ---
Nurse's Notes [facility] Name: Jasmine Vazquez Age: 65 yrs Sex: Female : 1955 Arrival Date: 01/09/2021 Time: 09:05 Bed 6 Private MD: Diagnosis: Chest pain, unspecified Presentation: 01/09 09:06 Chief complaint: Patient states: right sided chest pain started last night, radiates iw across entire chest. Coronavirus screen: At this time, the client does not indicate any symptoms associated with coronavirus-19. Ebola Screen: Patient negative for fever greater than or equal to 101.5 degrees Fahrenheit, and additional compatible Ebola Virus Disease symptoms Patient denies exposure to infectious person. Patient denies travel to an Ebola-affected area in the 21 days before illness onset. No symptoms or risks identified at this time. Onset of symptoms was January 08, 2021. 09:06 Method Of Arrival: Wheelchair iw 09:06 Acuity: RAKAN 2 iw 10:11 Initial Sepsis Screen: Does the patient meet any 2 criteria? No. Patient's initial jl7 sepsis screen is negative. Does the patient have a suspected source of infection? No. Patient's initial sepsis screen is negative. Risk Assessment: Do you want to hurt yourself or someone else? Patient reports no desire to harm self or others. Historical: - Allergies: 09:09 PENICILLINS; aa5 - Home Meds: 09:09 Ventolin Rotahaler/Rotacaps Inhl [Active]; Advair Diskus Inhl [Active]; Stiolto aa5 Respimat inhalation [Active]; Tylenol #3 Oral [Active]; meloxicam oral oral [Active]; "muscle relaxer" [Active]; - PMHx: 09:09 Asthma; titanium in neck; chronic knee pain; eczema; aa5 - Immunization history:: Adult Immunizations unknown. - Social history:: Smoking status: unknown. Screenin:10 Abuse screen: Denies threats or abuse. Denies injuries from another. Nutritional jl7 screening: No deficits noted. Tuberculosis screening: No symptoms or risk factors identified. Fall Risk IV access (20 points). Total Rivera Fall Scale indicates No Risk (0-24 pts). Assessment: 09:15 General: Appears uncomfortable, Behavior is calm, cooperative. Pain: Complains of pain aa5 in mid-sternal area Pain does not radiate. Pain currently is 10 out of 10 on a pain scale. Quality of pain is described as sharp, Pain began 1 day ago. Is continuous. Neuro: Level of Consciousness is awake, alert, obeys commands, Oriented to person, place, time, situation. Cardiovascular: Heart tones S1 S2 present Rhythm is regular. Respiratory: Airway is patent Respiratory effort is even, unlabored, Respiratory pattern is regular, symmetrical, Breath sounds are clear bilaterally. GI: Abdomen is round non-distended. : No signs and/or symptoms were reported regarding the genitourinary system. EENT: No signs and/or symptoms were reported regarding the EENT system. Derm: Skin is pink, warm \\T\\ dry. Musculoskeletal: Range of motion: intact in all extremities. 09:47 Reassessment: Patient is alert, oriented x 3, equal unlabored respirations, skin aa5 warm/dry/pink. 10:10 Reassessment: Patient is alert, oriented x 3, equal unlabored respirations, skin aa5 warm/dry/pink. Patient denies pain at this time. Patient states feeling better. Patient states symptoms have improved. 11:44 Reassessment: Patient is alert, oriented x 3, equal unlabored respirations, skin aa5 warm/dry/pink. 11:44 Pain: Pain currently is 10 out of 10 on a pain scale. aa5 12:20 Reassessment: Patient is alert, oriented x 3, equal unlabored respirations, skin aa5 warm/dry/pink. Patient states symptoms have not improved. [employer] notified of unchanged pain level. . 13:05 Reassessment: Patient is alert, oriented x 3, equal unlabored respirations, skin aa5 warm/dry/pink. Awaiting repeat troponin. Pain: Pain currently is 8 out of 10 on a pain scale. 14:10 Reassessment: Patient is alert, oriented x 3, equal unlabored respirations, skin aa5 warm/dry/pink. Awaiting repeat troponin result. . Pain: Pain currently is 8 out of 10 on a pain scale. Aggravated by repositioning. 15:24 Reassessment: Patient is alert, oriented x 3, equal unlabored respirations, skin aa5 warm/dry/pink. Pt c/o increased pain, rates pain 10/10 on a pain scale, [employer] was notified. . 16:15 Reassessment: Patient is alert, oriented x 3, equal unlabored respirations, skin aa5 warm/dry/pink. Patient states feeling better. Patient states symptoms have improved. Vital Signs: 09:06 BP 133 / 87; Pulse 87; Resp 16; Temp 98.9; Pulse Ox 99% on R/A; Pain 10/10; iw 09:57 BP 144 / 81; Pulse 82; Resp 17; Pulse Ox 98% ; jl7 11:30 BP 142 / 86; Pulse 86; Resp 18 S; Pulse Ox 99% on R/A; Pain 10/10; aa5 13:05 BP 144 / 88; Pulse 85; Resp 16 S; Temp 98.5(TE); Pulse Ox 98% on R/A; aa5 15:01 BP 147 / 90; Pulse 94; Resp 17; Pulse Ox 99% ; jl7 ED Course: 09:05 Patient arrived in ED. am2 09:07 Triage completed. iw 09:09 Blake Chappell NP is PHCP. pm1 09:09 Maryam Salinas MD is Attending Physician. pm1 09:43 Miriam Whitney RN is Primary Nurse. aa5 09:45 Initial lab(s) drawn, by me, sent to lab. Inserted saline lock: 22 gauge in right aa5 antecubital area, using aseptic technique. Blood collected. 09:51 XRAY Chest (1 view) In Process Unspecified. EDMS 09:57 EKG done, by ED staff, reviewed by Blake Chappell NP. em1 10:10 Patient maintains SpO2 saturation greater than 95% on room air. jl7 10:10 Patient has correct armband on for positive identification. Placed in gown. Bed in low jl7 position. Call light in reach. Side rails up X 1. patient monitor on. Pulse ox on. NIBP on. Warm blanket given. 10:11 Arm band placed on right wrist. jl7 16:15 No provider procedures requiring assistance completed. IV discontinued, intact, aa5 bleeding controlled, No redness/swelling at site. Pressure dressing applied. Administered Medications: 09:38 Drug: Aspirin Chewable Tablet 324 mg Route: PO; aa5 11:44 Follow up: Response: No adverse reaction aa5 09:47 Drug: morphine 4 mg Route: IVP; Site: right antecubital; aa5 10:00 Follow up: Response: No adverse reaction aa5 09:47 Drug: Zofran (Ondansetron) 4 mg Route: IVP; Site: right antecubital; aa5 10:00 Follow up: Response: No adverse reaction aa5 11:44 Drug: Valium (diazepam) 5 mg Route: IVP; Site: right antecubital; aa5 12:20 Follow up: Response: No adverse reaction; Pain is unchanged, physician notified aa5 15:27 Drug: morphine 4 mg Route: IVP; Site: right antecubital; aa5 15:54 Follow up: Response: No adverse reaction; Pain is decreased aa5 15:57 Drug: morphine 4 mg Route: IVP; Site: right antecubital; aa5 16:15 Follow up: Response: No adverse reaction; Pain is decreased aa5 Outcome: 15:57 Discharge ordered by MD. pm1 16:15 Discharged to home via wheelchair, with family. aa5 16:15 Condition: improved 16:15 Discharge instructions given to patient, Instructed on discharge instructions, follow up and referral plans. Demonstrated understanding of instructions, follow-up care. 16:23 Patient left the ED. aa5 Signatures: Dispatcher [employer] EDMS Khloe Good RN RN iw Martinez, Eric em1 Miriam Whitney RN RN aa5 Blake Chappell, YAQUELIN [employer] pm1 Robby Mcelroy RN RN jl7 Shavon Hinds am2 Corrections: (The following items were deleted from the chart) 16:26 09:15 Pain: Complains of pain in mid-sternal area Pain does not radiate. Pain currently aa5 is 10 out of 10 on a pain scale. Quality of pain is described as sharp, Is continuous, aa5 16:26 11:30 Reassessment: Patient is alert, oriented x 3, equal unlabored respirations, skin aa5 warm/dry/pink. aa5
--- NOTE | 2021-01-09 15:58 | EDPHYS ---
Physician Documentation [facility] Name: Jasmine Vazquez Age: 65 yrs Sex: Female : 1955 Arrival Date: 01/09/2021 Time: 09:05 Bed 6 Private MD: ED Physician Maryam Salinas HPI: 01/09 09:26 This 65 yrs old Female presents to ER via Wheelchair with complaints of Chest pm1 Pain. 09:26 The patient or guardian reports chest pain that is located primarily in the anterior pm1 aspect of right upper chest and anterior aspect of left upper chest. Onset: last night. Associated signs and symptoms: Pertinent negatives: abdominal pain, cough, diaphoresis, dizziness, headache, nausea, shortness of breath, vomiting. The chest pain is described as sharp. Duration: The patient or guardian reports a single episode, that is still ongoing. Modifying factors: the symptoms are aggravated by moving both of her arms. Severity of pain: in the emergency department the pain is unchanged. The patient has not experienced similar symptoms in the past. The patient has not recently seen a physician. 15:40 Patient was using an elliptical machine which requires the movement of her arms with pm1 her legs, using resistance bands for curls and shoulder presses, and lifted and move a table in her house yesterday and the day before. Historical: - Allergies: 09:09 PENICILLINS; aa5 - Home Meds: 09:09 Ventolin Rotahaler/Rotacaps Inhl [Active]; Advair Diskus Inhl [Active]; Stiolto aa5 Respimat inhalation [Active]; Tylenol #3 Oral [Active]; meloxicam oral oral [Active]; "muscle relaxer" [Active]; - PMHx: 09:09 Asthma; titanium in neck; chronic knee pain; eczema; aa5 - Immunization history:: Adult Immunizations unknown. - Social history:: Smoking status: unknown. ROS: 09:26 Constitutional: Negative for fever, chills, and weight loss. pm1 09:26 Respiratory: Negative for shortness of breath, cough, wheezing, and pleuritic chest pain, Abdomen/GI: Negative for abdominal pain, nausea, vomiting, diarrhea, and constipation, Back: Negative for injury and pain, MS/Extremity: Negative for injury and deformity, Skin: Negative for injury, rash, and discoloration, Neuro: Negative for headache, weakness, numbness, tingling, and seizure. 09:26 Cardiovascular: Positive for chest pain, Negative for edema, palpitations. Exam: 09:26 Constitutional: This is a well developed, well nourished patient who is awake, alert, pm1 and in no acute distress. Head/Face: Normocephalic, atraumatic. 09:26 Cardiovascular: Regular rate and rhythm with a normal S1 and S2. No gallops, murmurs, or rubs. Normal PMI, no JVD. No pulse deficits. Respiratory: Lungs have equal breath sounds bilaterally, clear to auscultation and percussion. No rales, rhonchi or wheezes noted. No increased work of breathing, no retractions or nasal flaring. 09:26 Back: No spinal tenderness. No costovertebral tenderness. Full range of motion. Skin: Warm, dry with normal turgor. Normal color with no rashes, no lesions, and no evidence of cellulitis. MS/ Extremity: Pulses equal, no cyanosis. Neurovascular intact. Full, normal range of motion. 09:26 Chest/axilla: Inspection: normal, Palpation: tenderness, that is moderate, of the anterior aspect of right upper chest and anterior aspect of left upper chest, that totally reproduces the patient's complaints. 09:26 Abdomen/GI: Inspection: abdomen appears normal, Palpation: abdomen is soft and non-tender, in all quadrants, chest pain reproduced with moving both arms. 09:26 Neuro: Orientation: is normal, Mentation: is normal, Motor: is normal, moves all fours. Vital Signs: 09:06 BP 133 / 87; Pulse 87; Resp 16; Temp 98.9; Pulse Ox 99% on R/A; Pain 10/10; iw 09:57 BP 144 / 81; Pulse 82; Resp 17; Pulse Ox 98% ; jl7 11:30 BP 142 / 86; Pulse 86; Resp 18 S; Pulse Ox 99% on R/A; Pain 10/10; aa5 13:05 BP 144 / 88; Pulse 85; Resp 16 S; Temp 98.5(TE); Pulse Ox 98% on R/A; aa5 15:01 BP 147 / 90; Pulse 94; Resp 17; Pulse Ox 99% ; jl7 MDM: 09:11 Patient medically screened. pm1 15:57 Data reviewed: vital signs. Data interpreted: Pulse oximetry: on room air is 99 %. pm1 Interpretation: normal. Counseling: I had a detailed discussion with the patient and/or guardian regarding: the historical points, exam findings, and any diagnostic results supporting the discharge/admit diagnosis, lab results, radiology results, the need for outpatient follow up, to return to the emergency department if symptoms worsen or persist or if there are any questions or concerns that arise at home. 01/09 09:12 Order name: Basic Metabolic Panel; Complete Time: 10:36 pm01/09 09:12 Order name: CBC with Diff; Complete Time: 10:36 pm01/09 09:12 Order name: LFT's; Complete Time: 10:36 pm01/09 09:12 Order name: Magnesium; Complete Time: 10:36 pm01/09 09:12 Order name: NT PRO-BNP; Complete Time: 10:36 pm01/09 09:12 Order name: PT-INR; Complete Time: 10:36 pm01/09 09:12 Order name: Troponin (emerg Dept Use Only); Complete Time: 10:36 pm01/09 09:12 Order name: XRAY Chest (1 view); Complete Time: 10:36 pm01/09 13:32 Order name: Troponin (emerg Dept Use Only): due at 1345; Complete Time: 15:21 aa5 01/09 09:12 Order name: EKG; Complete Time: 09:12 pm01/09 09:12 Order name: Cardiac monitoring; Complete Time: 09:43 pm01/09 09:12 Order name: EKG - Nurse/Tech; Complete Time: 09:43 pm01/09 09:12 Order name: IV Saline Lock; Complete Time: 09:59 pm01/09 09:12 Order name: Labs collected and sent; Complete Time: 09:59 pm01/09 09:12 Order name: O2 Per Protocol; Complete Time: 09:43 pm01/09 09:12 Order name: O2 Sat Monitoring; Complete Time: 09:43 pm1 Administered Medications: 09:38 Drug: Aspirin Chewable Tablet 324 mg Route: PO; aa5 11:44 Follow up: Response: No adverse reaction aa5 09:47 Drug: morphine 4 mg Route: IVP; Site: right antecubital; aa5 10:00 Follow up: Response: No adverse reaction aa5 09:47 Drug: Zofran (Ondansetron) 4 mg Route: IVP; Site: right antecubital; aa5 10:00 Follow up: Response: No adverse reaction aa5 11:44 Drug: Valium (diazepam) 5 mg Route: IVP; Site: right antecubital; aa5 12:20 Follow up: Response: No adverse reaction; Pain is unchanged, physician notified aa5 15:27 Drug: morphine 4 mg Route: IVP; Site: right antecubital; aa5 15:54 Follow up: Response: No adverse reaction; Pain is decreased aa5 15:57 Drug: morphine 4 mg Route: IVP; Site: right antecubital; aa5 16:15 Follow up: Response: No adverse reaction; Pain is decreased aa5 Disposition: 01/09/21 15:57 Discharged to Home. Impression: Chest pain, unspecified. - Condition is Stable. - Discharge Instructions: Nonspecific Chest Pain. - Medication Reconciliation Form, Thank You Letter, Antibiotic Education, Prescription Opioid Use form. - Follow up: Emergency Department; When: As needed; Reason: Worsening of condition. Follow up: Private Physician; When: 2 - 3 days; Reason: Recheck today's complaints, Continuance of care, Re-evaluation by your physician. - Problem is new. - Symptoms have improved. Addendum: 01/10/2021 18:36 Co-signature as Attending Physician, Maryam Salinas MD. m a2 Signatures: Dispatcher [employer] EDPR Miriam Whitney, RN RN aa5 Blake Chappell, COMPREHENSIVE ADVISOR COMPREHENSIVE ADVISOR pm1 Robby Mcelroy RN RN jl7 Maryam Salinas MD MD ma2 Corrections: (The following items were deleted from the chart) 01/09 16:23 15:57 01/09/2021 15:57 Discharged to Home. Impression: Chest pain, unspecified. aa5 Condition is Stable. Forms are Medication Reconciliation Form, Thank You Letter, Antibiotic Education, Prescription Opioid Use. Follow up: Emergency Department; When: As needed; Reason: Worsening of condition. Follow up: Private Physician; When: 2 - 3 days; Reason: Recheck today's complaints, Continuance of care, Re-evaluation by your physician. Problem is new. Symptoms have improved. pm1
[2021-01-09 16:39] VITALS: TEMP 98.9
[2021-01-09 16:41] VITALS: O2SAT 99
[2021-01-09 16:42] VITALS: BP 147/90
--- NOTE | 2021-01-10 12:56 | EKG ---
Test Date: 2021-01-09 Test Time: 09:27:47 Service Supervisor: TITI MEASUREMENT RESULTS: Intervals: Rate: 85 MT: 120 QRSD: 82 QT: 352 QTc: 418 [place]: P: 54 MT: 120 QRS: 28 T: 86 INTERPRETIVE STATEMENTS: Normal sinus rhythm Nonspecific ST abnormality Abnormal ECG Compared to ECG 11/16/2018 22:56:38 ST (T wave) deviation now present Electronically Signed On 01-10-21 12:52:54 CDT by Abdi Wynn
== END 2021-01-09 16:23 | disposition home or self-care (01) ==
LOC: ER 09:04
DX: R07.9 Chest pain, unspecified (principal); Z88.0 Allergy status to penicillin
CPT/HCPCS: 93005; 85025; 80048; 36415; 83735; 85610; 80076; 84484 ×2; 83880; 71045; J3360; J2405; 96374; 96375; 99285

== ENCOUNTER → 2023-10-03 | Emergency (ER) | payer OTHER ==
[~2023-10-03] MED LIST: KETOROLAC 30 MG/ML INJ ONE; MORPHINE 4 MG/ML SYR ONE; NA CHLORIDE 0.9% 1,000 ML ONE; ONDANSETRON 4 MG/2 ML VIAL ONE
[2023-10-03 12:49] LABS: Specific Gravity 1.006 (1.005-1.030); Urine Bacteria <20 /HPF (<20); Urine Bilirubin NEGATIVE (Negative); Urine Blood 3+ (Negative); Urine Clarity Turbid (Clear); Urine Color Colorless (Yellow); Urine Glucose NEGATIVE (Negative); Urine Mucus Slight /HPF (None Seen); Urine Protein NEGATIVE (Negative); Urine RBC 21-50 /HPF (None Seen); Urine Urobilinogen Normal (Normal); Urine pH 5.5 (5.0-7.0)
--- NOTE | 2023-10-03 13:54 | RAD REPORT ---
EXAM DESCRIPTION: CT - Abdomen Pelvis Wo Contrast - 10/03/2023 12:49 pm CLINICAL HISTORY: ABD PAIN COMPARISON: No comparisons TECHNIQUE: Thin cut axial CT imaging of the abdomen and pelvis was performed without IV contrast. Mu ltiplanar reformats were generated and reviewed. All CT scans are performed using dose optimization technique as appropriate and may include automated exposure control or mA/KV adjustment according to patient size. FINDINGS: No suspicious findings in the lung bases. The liver, spleen, and pancreas show no suspicious findings. Gallbladder and biliary tree are also wi thout suspicious finding. Symmetric renal contour, without suspicious parenchymal findings within limits of noncontrast techniq ue. 2 mm right vesicoureteral junction calculus with moderate right hydroureteronephrosis. No dilated bowel loops or bowel wall thickening. No free air, free fluid or inflammatory stranding. N o hernia, mass or bulky lymphadenopathy. The urinary bladder is without significant finding. No suspicious bony findings. IMPRESSION: Moderate right hydroureteronephrosis. 2 mm right vesicoureteral junction calculus. The findings were communicated to Robson Macedo on 10/03/2023 at 13:50 hours.
[2023-10-03 14:06] LABS: Absolute Lymphocytes (CBC) 1.2 K/uL (0.7-4.9); Hematocrit 46.2 % (36.0-45.0); MCV 86.1 fL (80-100); MPV 8.3 fL (7.6-11.3); Platelets 380 thou/uL (152-406); RBC Red Blood Cell Count 5.36 M/uL (3.86-4.86)
[2023-10-03 14:21] LABS: Albumin 3.6 g/dL (3.4-5.0); Bilirubin Total 0.5 mg/dL (0.2-1.0); Potassium 4.7 mEq/L (3.5-5.1); Protein, Total 8.8 g/dL (6.4-8.2)
--- NOTE | 2023-10-03 14:53 | ER ---
Nurse's Notes [facility] Name: Jasmine Vazquez Age: 68 yrs Sex: Female : 1955 Arrival Date: 10/03/2023 Time: 11:54 Bed DX1 Private MD: Diagnosis: Ureteral Stone Presentation: 10/03 12:07 Coronavirus screen: Client denies travel out of the [place] in the last 14 days. At this ap3 time, the client does not indicate any symptoms associated with coronavirus-19. Ebola Screen: Patient denies travel to an Ebola-affected area in the 21 days before illness onset. Initial Sepsis Screen: Does the patient meet any 2 criteria? No. Patient's initial sepsis screen is negative. Does the patient have a suspected source of infection? Yes: Acute abdominal pain. Risk Assessment: Do you want to hurt yourself or someone else? Patient reports no desire to harm self or others. 12:07 Method Of Arrival: Ambulatory ap3 12:15 Chief complaint: Patient states: Unable to urinate well since 3 AM, just dribbling. ll1 Pain to lower abdomen and R lower back. No fever. Onset of symptoms was October 03, 2023. 12:15 Acuity: RAKAN 3 ll1 Triage Assessment: 12:17 General: Appears in no apparent distress. Behavior is calm, cooperative, appropriate ll1 for age. Pain: Complains of pain in low abdomen Quality of pain is described as aching, crampy. GI: Reports lower abdominal pain. : Reports inability to void, pain in right in left lower quadrant(s). Historical: - Allergies: 12:06 PENICILLINS; ap3 - PMHx: 12:06 Asthma; chronic knee pain; eczema; titanium in neck; ap3 - PSHx: 12:06 neck SX (titanium in neck); ap3 - Immunization history:: Adult Immunizations up to date. Assessment: 13:56 Reassessment: No changes from previously documented assessment. Patient and/or family ll1 updated on plan of care and expected duration. Pain level reassessed. Patient is alert, oriented x 3, equal unlabored respirations, skin warm/dry/pink. Vital Signs: 12:15 BP 147 / 88; Pulse 74; Resp 17; Temp 98.1; Pulse Ox 98% on R/A; Weight 55.34 kg; Height ll1 4 ft. 9 in. ; Pain 10/10; 12:15 Body Mass Index 26.40 (55.34 kg, 144.78 cm) ll1 12:15 Pain Scale: Adult ll1 ED Course: 11:57 Patient arrived in ED. ra3 12:06 Arm band placed on. ap3 12:17 Triage completed. ll1 12:23 Severo Lemos MD is Attending Physician. ec2 12:36 Urinalysis w/ reflexes Sent. iw 12:51 CT Abd/Pelvis - Without Contrast In Process Unspecified. EDMS 13:56 Inserted saline lock: 22 gauge in right antecubital area, using aseptic technique. ll1 Blood collected. 14:51 Khloe Good, RN is Primary Nurse. iw 14:52 Charlie Bucio MD is Referral Physician. ec2 Administered Medications: 14:51 Drug: NS 0.9% IV 1000 ml IV at 1 bolus Per protocol; 1000 mL bolus Route: IV; Rate: 1 iw bolus; Site: right antecubital; 14:52 Drug: TORadol - Ketorolac IVP 15 mg IVP once Route: IVP; Site: right antecubital; iw 14:52 Drug: Ondansetron IVP 4 mg IVP once; over 2 minutes Route: IVP; Site: right antecubital;iw 14:52 Drug: morphine IVP or IV 4 mg IVP once over 4 mins Route: IVP; Infused Over: 4 mins; iw Site: right antecubital; Outcome: 14:52 Discharge ordered by MD. ec2 15:29 Patient left the ED. kc6 Signatures: Dispatcher [employer] EDMS Khloe Good, RN MAGI iw Shavon Mcginnis RN RN ap3 Jasen Pettit RN RN ll1 Nilda Gilmore RN RN kc6 Severo Lemos MD MD ec2 Sarah Arechiga [facility]
--- NOTE | 2023-10-03 14:54 | EDPHYS ---
Physician Documentation [facility] Name: Jasmine Vazquez Age: 68 yrs Sex: Female : 1955 Arrival Date: 10/03/2023 Time: 11:54 Bed DX1 Private MD: ED Physician Severo Lemos HPI: 10/03 12:36 This 68 yrs old Female presents to ER via Ambulatory with complaints of ec2 Abdominal Pain, Back Pain - unable to urine. 12:36 Patient arrives today for evaluation of lower abdominal pain. Patient reports that she ec2 also experiencing right flank pain. Patient reports that she had some urinary discomfort, states that she heard a "plop ". Reports no fevers or chills, no cough or cold symptoms.. Historical: - Allergies: 12:06 PENICILLINS; ap3 - PMHx: 12:06 Asthma; chronic knee pain; eczema; titanium in neck; ap3 - PSHx: 12:06 neck SX (titanium in neck); ap3 - Immunization history:: Adult Immunizations up to date. ROS: 12:36 Constitutional: as per hpi ec2 Exam: 12:36 Constitutional: GEN: NAD Head: atraumatic Eyes: EOMI Ears: External ears are ec2 normal. CV: regular rate LUNGS: no respiratory distress ABD: non-distended, soft, tender in the general abdomen, not guarding, not rigid, positive right CVA TTP SKIN: no evidence of rashes MSK: no evidence of trauma NEURO: moves all extremities equally Vital Signs: 12:15 BP 147 / 88; Pulse 74; Resp 17; Temp 98.1; Pulse Ox 98% on R/A; Weight 55.34 kg; Height ll1 4 ft. 9 in. ; Pain 10/10; 12:15 Body Mass Index 26.40 (55.34 kg, 144.78 cm) ll1 12:15 Pain Scale: Adult ll1 MDM: 12:25 Patient medically screened. ec2 12:36 Data reviewed: vital signs. ec2 12:36 ED course: Patient arrives today for evaluation of abdominal pain. Examination ec2 remarkable for abdominal findings as noted above. Will obtain lab work, CT imaging, treat the patient symptoms and reassess the patient. Currently considering processes such as ureteral stone, pyelonephritis, UTI, gastroenteritis.. 14:47 ED course: Urine with small amount of leuk esterase present as well as blood present. ec2 CBC shows slight leukocytosis present. Metabolic profile with diminished renal function and a GFR of 70. Lipase nonactionable. CT imaging shows 2 mm right UVJ. On reassessment patient remains well-appearing and in no acute distress. I will discharge home with medications for pain, have her follow-up with urology. Return precautions given. . 10/03 12:29 Order name: Urinalysis w/ reflexes; Complete Time: 14:46 ll1 10/03 12:36 Order name: CBC with Diff; Complete Time: 14:46 ec2 10/03 12:36 Order name: CMP; Complete Time: 14:46 ec2 10/03 12:36 Order name: Lipase; Complete Time: 14:46 ec2 10/03 12:36 Order name: CT Abd/Pelvis - Without Contrast; Complete Time: 14:46 ec2 10/03 12:36 Order name: IV Saline Lock; Complete Time: 13:59 ec2 10/03 12:36 Order name: Labs collected and sent; Complete Time: 13:59 ec2 Administered Medications: 14:51 Drug: NS 0.9% IV 1000 ml IV at 1 bolus Per protocol; 1000 mL bolus Route: IV; Rate: 1 iw bolus; Site: right antecubital; 14:52 Drug: TORadol - Ketorolac IVP 15 mg IVP once Route: IVP; Site: right antecubital; iw 14:52 Drug: Ondansetron IVP 4 mg IVP once; over 2 minutes Route: IVP; Site: right antecubital;iw 14:52 Drug: morphine IVP or IV 4 mg IVP once over 4 mins Route: IVP; Infused Over: 4 mins; iw Site: right antecubital; Disposition Summary: 10/03/23 14:52 Discharge Ordered Notes: Location: Home ec2 Condition: Stable ec2 Diagnosis - Ureteral Stone ec2 Followup: ec2 - With: Charlie Bucio MD - When: - Reason: Continuance of care Discharge Instructions: - Discharge Summary Sheet ec2 - Kidney Stones, [id number] ec2 Forms: - Medication Reconciliation Form ec2 - Thank You Letter ec2 - Antibiotic Education ec2 - Prescription Opioid Use ec2 - Patient Portal Instructions ec2 - Leadership Thank You Letter ec2 Prescriptions: - acetaminophen-codeine 300-15 mg Oral tablet - take 1 tablet ORAL route every 4 to 6 hours as needed for pain; 20 tablet; ec2 Refills: 0, Product Selection Permitted Signatures: Dispatcher [employer] Khloe Aguiar RN Shavon Escalante RN RN ap3 Severo Lemos MD MD ec2
[2023-10-03 17:35] VITALS: BP 147/88; TEMP 98.1; O2SAT 98
== END ==
LOC: ER 11:54
DX: N20.1 Calculus of ureter (principal); Z88.0 Allergy status to penicillin
CPT/HCPCS: 85025; 81001; 36415; 83690; 80053; 74176; 96375; 96374; 99284; J2405; J7030

== ENCOUNTER 2024-04-02 14:30 | Emergency (ER) | payer OTHER ==
--- NOTE | 2024-04-02 16:20 | RAD REPORT ---
EXAM DESCRIPTION: RAD - Knee Right 3 View - 04/02/2024 4:15 pm CLINICAL HISTORY: trauma Trauma, pain COMPARISON: Knee Right 3 View dated 01/20/2021 FINDINGS: Significant medial joint compartment space narrowing. Moderate patellofemoral joint arthri tis. Small joint effusion. No acute fracture or dislocation.
--- NOTE | 2024-04-02 17:12 | RAD REPORT ---
EXAM DESCRIPTION: US - Extremity Venous Uni Ltd - 04/02/2024 4:25 pm CLINICAL HISTORY: Swelling;Pain Leg swelling and edema. COMPARISON: Extremity Venous Uni Ltd dated 04/04/2019 FINDINGS: Right lower extremity venous system was interrogated with Doppler technique. Normal flow, compressibility and augmentation was noted. There is no DVT present. IMPRESSION: No evidence of right lower extremity deep venous thrombosis.
--- NOTE | 2024-04-02 17:16 | EDPHYS ---
Physician Documentation [facility] Name: Jasmine Vazquez Age: 68 yrs Sex: Female : 1955 Arrival Date: 04/02/2024 Time: 14:30 Bed 10 Private MD: ED Physician Peyton Beth HPI: 04/02 15:32 This 68 yrs old Female presents to ER via Wheelchair with complaints of Leg Swelling. sp3 15:32 68-year-old female with a history of chronic knee pain, eczema, multiple sclerosis now sp3 presents with chief complaint right knee pain and extremity swelling for 3 days. Patient states that she had a minor fall and landed on her bilateral knees. She denies any other injuries. She is able to ambulate although her right lower extremity is painful. She denies any other symptoms including headache, facial pain, chest pain, shortness of breath, back pain syncope, near syncope, medical prodrome prior to the fall, or any other signs or symptoms on ROS at this time.. 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 - Infectious Disease History:: Denies. - Social history:: Smoking status: Patient denies any tobacco usage or history of. ROS: 15:32 Constitutional: Negative for fever, chills, and weight loss, Eyes: Negative for injury, sp3 pain, redness, and discharge, Neck: Negative for injury, pain, and swelling, Cardiovascular: Negative for chest pain, palpitations, and edema, Respiratory: Negative for shortness of breath, cough, wheezing, and pleuritic chest pain, Abdomen/GI: Negative for abdominal pain, nausea, vomiting, diarrhea, and constipation, Back: Negative for injury and pain, Skin: Negative for injury, rash, and discoloration, Neuro: Negative for headache, weakness, numbness, tingling, and seizure, Psych: Negative for depression, anxiety, suicide ideation, homicidal ideation, and hallucinations, Allergy/Immunology: Negative for hives, rash, and allergies, Endocrine: Negative for neck swelling, polydipsia, polyuria, polyphagia, and marked weight changes, Hematologic/Lymphatic: Negative for swollen nodes, abnormal bleeding, and unusual bruising, 15:32 All other systems are negative, Exam: 15:33 Constitutional: This is a well developed, well nourished patient who is awake, alert, sp3 and in no acute distress. Head/Face: Normocephalic, atraumatic. Eyes: Pupils equal round and reactive to light, extra-ocular motions intact. Lids and lashes normal. Conjunctiva and sclera are non-icteric and not injected. Cornea within normal limits. Periorbital areas with no swelling, redness, or edema. Neck: Trachea midline, no thyromegaly or masses palpated, and no cervical lymphadenopathy. Supple, full range of motion without nuchal rigidity, or vertebral point tenderness. No Meningismus. Chest/axilla: Normal chest wall appearance and motion. Nontender with no deformity. No lesions are appreciated. Cardiovascular: Regular rate and rhythm with a normal S1 and S2. No gallops, murmurs, or rubs. Normal PMI, no JVD. No pulse deficits. Respiratory: Lungs have equal breath sounds bilaterally, clear to auscultation and percussion. No rales, rhonchi or wheezes noted. No increased work of breathing, no retractions or nasal flaring. Abdomen/GI: Soft, non-tender, with normal bowel sounds. No distension or tympany. No guarding or rebound. No evidence of tenderness throughout. Back: No spinal tenderness. No costovertebral tenderness. Full range of motion. Skin: Warm, dry with normal turgor. Normal color with no rashes, no lesions, and no evidence of cellulitis. Neuro: Awake and alert, GCS 15, oriented to person, place, time, and situation. Cranial nerves II-XII grossly intact. Motor strength 5/5 in all extremities. Sensory grossly intact. Cerebellar exam normal. Normal gait. Psych: Awake, alert, with orientation to person, place and time. Behavior, mood, and affect are within normal limits. 15:33 Musculoskeletal/extremity: Right knee painful to palpation and movement however no joint effusion noted. Distal to the knee is diffuse extremity swelling 2+ pitting in nature. Swelling is unilateral. Distal neurovascular exam is normal including capillary refill.. Vital Signs: 14:48 BP 131 / 85; Pulse 85; Resp 16; Temp 98.1; Pulse Ox 100% ; Weight 57.61 kg; Height 4 nj1 ft. 9 in. ; Pain 9/10; 14:48 Body Mass Index 27.48 (57.61 kg, 144.78 cm) nj1 14:48 Pain Scale: Adult nj1 MDM: 14:56 Patient medically screened. sp3 15:33 Data reviewed: vital signs, nurses notes, radiologic studies. ED course: 68-year-old sp3 female with right lower extremity swelling. Consider DVT versus other traumatic related swelling. I am not highly suspicious of arterial abnormality or obstruction. X-ray of the knee and right lower extremity ultrasound pending. Disposition pending workup and patient course.. 17:14 ED course: DVT scan is negative and x-ray demonstrates inflammation. I believe this is sp3 all trauma related without any fracture. Will tell patient to follow-up with PCP and elevate extremity.. 04/02 15:04 Order name: US Extremity Venous Unilateral Ltd; Complete Time: 17:14 sp3 04/02 15:31 Order name: Knee Right 3 View XRAY; Complete Time: 16:32 sp3 Administered Medications: No medications were administered Disposition Summary: 04/02/24 17:16 Discharge Ordered Notes: Location: Home sp3 Condition: Stable sp3 Diagnosis - Knee inflammation, knee effusion, right lower extremity swelling sp3 Followup: sp3 - With: Private Physician - When: Upon discharge from the Emergency Department - Reason: Continuance of care Discharge Instructions: - Discharge Summary Sheet sp3 - Knee Effusion sp3 Forms: - Medication Reconciliation Form sp3 - Antibiotic Education sp3 - Prescription Opioid Use sp3 - Patient Portal Instructions sp3 - Leadership Thank You Letter sp3 Prescriptions: - Diclofenac Sodium 75 mg Oral Tablet Sustained Release - take 1 tablet ORAL route 2 times per day; 30 tablet; Refills: 0, Product sp3 Selection Permitted Signatures: Dispatcher [employer] EDMS Peyton Beth MD MD sp3 Julieta Casper RN RN nj1 Puja Vuong RN RN cm10 Corrections: (The following items were deleted from the chart) 15:31 15:31 Knee Right 3 View+[email or web address] ordered. EDMS EDMS
--- NOTE | 2024-04-02 17:16 | ER ---
Nurse's Notes [facility] Name: Jasmine Vazquez Age: 68 yrs Sex: Female : 1955 Arrival Date: 04/02/2024 Time: 14:30 Bed 10 Private MD: Diagnosis: Knee inflammation, knee effusion, right lower extremity swelling Presentation: 04/02 14:48 Chief complaint: Patient states: Right lower leg swelling since last week, first nj1 noticed after she fell on her knees. States she has hx of MS. Coronavirus screen: Vaccine status: Patient reports receiving the 2nd dose of the covid vaccine. Ebola Screen: Patient denies travel to an Ebola-affected area in the 21 days before illness onset. Initial Sepsis Screen: Does the patient meet any 2 criteria? No. Patient's initial sepsis screen is negative. Does the patient have a suspected source of infection? No. Patient's initial sepsis screen is negative. Risk Assessment: Do you want to hurt yourself or someone else? Patient reports no desire to harm self or others. Onset of symptoms was March 2024. 14:48 Method Of Arrival: Wheelchair [facility] 14:48 Acuity: RAKAN 3 nj1 Triage Assessment: 17:12 General: Appears in no apparent distress. comfortable, Behavior is calm, cooperative. cm10 Pain: Complains of pain in right leg. Neuro: No deficits noted. Level of Consciousness is awake, alert, obeys commands, Oriented to person, place, time, situation, Appropriate for age. Respiratory: No deficits noted. Airway is patent Respiratory effort is even, unlabored, Respiratory pattern is regular, symmetrical. Musculoskeletal: Swelling present in right leg. 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 - Infectious Disease History:: Denies. - Social history:: Smoking status: Patient denies any tobacco usage or history of. Screenin:12 [facility] ED Fall Risk Assessment (Adult) History of falling in the last 3 months, cm10 including since admission Yes- single mechanical fall (1 pt) Confusion or Disorientation No (0 pts) Intoxicated or Sedated No (0 pts) Impaired Gait Yes (1 pt) Mobility Assist Device Used Yes (1 pt) Altered Elimination No (0 pt) Score/Fall Risk Level 3 or more points = High Risk Oriented to surroundings, Maintained a safe environment. Abuse screen: Denies threats or abuse. Denies injuries from another. Nutritional screening: No deficits noted. Tuberculosis screening: No symptoms or risk factors identified. Vital Signs: 14:48 BP 131 / 85; Pulse 85; Resp 16; Temp 98.1; Pulse Ox 100% ; Weight 57.61 kg; Height 4 nj1 ft. 9 in. ; Pain 9/10; 14:48 Body Mass Index 27.48 (57.61 kg, 144.78 cm) ca1 14:48 Pain Scale: Adult [facility] ED Course: 14:33 Patient arrived in ED. rg4 14:33 Peyton Beth MD is Attending Physician. sp3 14:50 Triage completed. nj1 14:51 Arm band placed on right wrist. nj1 15:16 Puja Vuong, RN is Primary Nurse. cm10 16:00 Knee Right 3 View XRAY In Process Unspecified. EDMS 16:27 US Extremity Venous Unilateral Ltd In Process Unspecified. EDMS 17:12 Patient has correct armband on for positive identification. Bed in low position. Call cm10 light in reach. Side rails up X 1. Provided Education on: ER process and procedures. 17:44 No provider procedures requiring assistance completed. Patient did not have IV access cm10 during this emergency room visit. Administered Medications: No medications were administered Medication: 17:12 VIS not applicable for this client. cm10 Outcome: 17:16 Discharge ordered by . sp3 17:44 Discharged to home ambulatory, cm10 17:44 Condition: good 17:44 Discharge instructions given to patient, Instructed on discharge instructions, follow up and referral plans. medication usage, Demonstrated understanding of instructions, follow-up care, medications, Prescriptions given X 1, 17:44 Patient left the ED. cm10 Signatures: Dispatcher [employer] Nikole Keller rg4 Peyton Beth MD MD sp3 Julieta Casper RN RN nj1 Puja Vuong, MAGI RN cm10
[2024-04-02 18:08] VITALS: BP 131/85; TEMP 98.1; O2SAT 100
== END 2024-04-02 17:44 | disposition home or self-care (01) ==
LOC: ER 14:30
DX: M25.461 Effusion, right knee (principal)
CPT/HCPCS: 93971; 99283